=== PATIENT | male | born 1955 | race Caucasian/White ===

== ENCOUNTER 2018-08-23 21:28 | Observation (INO) ==
[2018-08-23] MEDS ORDERED: 0.9 % SODIUM CHLORIDE 1,000 ML IV ONE (22:05)
[2018-08-23] MEDS ORDERED: LORazepam 2 MG/ML VIAL IV ONE (22:40)
--- NOTE | 2018-08-23 22:41 | Emergency Department Note ---
Altered Mental Status HPI - General Chief Complaint: Altered Mental Status Stated Complaint: altered mental status Time Seen by Provider: 08/23/18 22:14 Mode of arrival: ambulatory - History of Present Illness HPI Narrative: 63-year-old male was brought by family because of memory and a gradual decline where he became quite confused today. His found him naked from the waist down and confused and not able to understand his current condition and could not convince him to put on closed and would not respond or obey his . He has not had any alcohol in the last 1-1/2 months. He has a history of hepatic cirrhosis. He had elevated liver function test, elevated no ammonia level, in June. He is also on 50 mcg of fentanyl patch as well as hydrocodone 10 mg a half in the morning and 1 at night having to do with chronic pain from previous shoulder surgery and other orthopedic. He is on lactulose and it does cause some mild diarrhea. He has no vomiting or nausea or abdominal pain. He denies chest pains or shortness of breath. No fevers chills or sweats. - Related Data Home Medications Medication Instructions Recorded Confirmed Cyclobenzaprine [Flexeril] 10 mg PO DAILYP PRN 04/05/18 07/06/18 Gabapentin [Neurontin] 600 mg PO DAILY 04/05/18 07/06/18 HYDROcodone/APAP 10/325MG [[place] 1 - 2 tab PO Q6H PRN 04/05/18 07/06/18 10-325Mg] LORazepam [Ativan] 1 mg PO BIDP PRN 04/05/18 07/06/18 Lisinopril [Zestril] 40 mg PO DAILY 04/05/18 07/06/18 Omeprazole [PriLOSEC] 20 mg PO ACB 04/05/18 07/06/18 amLODIPine [Norvasc] 5 mg PO DAILY 04/05/18 07/06/18 buPROPion HCL [Bupropion Xl] 150 mg PO DAILY 04/05/18 07/06/18 fentaNYL [Fentanyl] 50 mg TD Q48H 04/05/18 07/06/18 Previous Rx's Medication Instructions Recorded Lactulose [Cephulac] 20 gm PO DAILY #300 oral.marquita 07/07/18 Allergies Allergy/AdvReac Type Severity Reaction Status Date / Time No Known Drug Allergies Allergy Verified 04/05/18 02:14 Past Medical History - Past Medical History Medical history: Reports: hypertension, liver disease, other (cirrhosis. Hepatic encephalopathy.) Psychiatric history: Reports: anxiety Surgical history ED: Reports: other - Social History smoking status: Former smoker Alcohol use: Reports: Occasionally Drug use: Reports: opiates Physical Exam Limitations: altered mental status General appearance: obtunded, sleepy, other (Seems to respond appropriately but with slowed speech and poor eye contact.) Head: atraumatic, normocephalic Eye: Present: PERRL, EOMI, scleral icterus ENT: normal oropharynx, mucous membranes moist Neck: Present: trachea midline. Absent: lymphadenopathy, thyromegaly Chest: Present: symmetric chest wall rise Respiratory: Present: normal lung sounds bilaterally. Absent: respiratory distress, wheezes, stridor, accessory muscle use, prolonged expiratory phase Cardiovascular: Present: regular rate, normal rhythm. Absent: systolic murmur, diastolic murmur Abdominal: Present: soft. Absent: distention, tenderness, guarding, rebound, rigidity, organomegaly, mass Extremities: Present: pretibial edema (Trace bilateral. Daughter reports that this is chronic. Has not changed.). Absent: pedal edema, calf tenderness Patient oriented to: Present: person, place Speech: Present: fluid speech, slurred Cranial nerves: EOM function (II, III, IV, ): Normal Psychiatric: Present: flat affect, serious, poor eye contact, other (Slightly restless trying to get out of bed.). Absent: agitated, anxious Skin: Present: warm, dry. Absent: diaphoretic Course Vital Signs Temperature 98.4 F 08/23/18 21:29 Pulse Rate 96 H 08/23/18 21:29 Respiratory Rate 17 08/23/18 21:29 Blood Pressure 128/76 08/23/18 21:29 Pulse Oximetry (%) 96 08/23/18 21:29 Temperature 98.4 F 08/23/18 21:29 Pulse Rate 86 08/23/18 22:25 Respiratory Rate 10 L 08/23/18 22:25 Blood Pressure 128/76 08/23/18 21:29 Pulse Oximetry (%) 97 08/23/18 22:25 Altered Mental Status - [facility] Narrative Medical decision making narrative: 10:25 PM - increasing altered level of consciousness and mental status changes with unawareness, uncooperativeness, inappropriateness (negative and unaware and not responding appropriately) on a background history of elevated liver function test, ammonia elevations and presumed hepatic encephalopathy, with failing lactulose therapy. We will do basic labs and imaging of the head to make sure that he has not had a intracerebral bleed or other reversible considerations. - Lab Data Result diagrams: 08/23/18 21:55 08/23/18 21:55 Lab Results 08/23/18 08/23/18 08/23/18 Range/Units 21:55 21:55 21:55 WBC 4.8 (4.5-11.0) K/mcL RBC 3.64 L (4.50-5.90) M/mcL Hgb 12.9 L (13.5-16.5) g/dL Hct 38.2 L (41.0-55.0) % MCV 105.0 H (80.0-100.0) fL MCH 35.4 H (26.0-34.0) pg MCHC 33.7 (31.0-36.0) g/dL RDW 14.3 (11.5-14.5) % Plt Count 74 L (140-440) K/mcL MPV 8.5 (7.4-10.4) fL Gran % 74.5 (38.0-78.0) % Lymph % (Auto) 15.9 (15.5-49.0) % [place] % (Auto) 8.4 (1.0-12.0) % Eos % (Auto) 0.7 (0.0-7.0) % Baso % (Auto) 0.5 (0.0-2.0) % Gran # 3.6 (1.8-8.0) K/mcL Lymph # (Auto) 0.8 L (1.5-4.8) K/mcL [place] # (Auto) 0.4 (0.1-0.9) K/mcL Eos # (Auto) 0 (0.0-0.7) K/mcL Baso # (Auto) 0 (0.0-0.3) K/mcL PT 21.4 H (11.9-14.5) sec INR 1.9 H (0.9-1.1) VBG Lactic Acid (0.5-2.0) mmol/L Sodium 135 (133-145) mmol/L Potassium 4.0 (3.3-5.1) mmol/L Chloride 102 (96-108) mmol/L Carbon Dioxide 22 (22-30) mmol/L Anion Gap 11.0 (8-16) BUN 13 (8-23) mg/dl Creatinine 0.7 (0.7-1.2) mg/dl GFR Calculation 100 Glucose 147 H (70-105) mg/dL Calcium 8.9 (8.6-10.4) mg/dl Total Bilirubin 7.1 H (0.0-1.0) mg/dL AST 48 H (0-37) U/l ALT 35 (0-40) U/l Alkaline Phosphatase 130 H (39-117) U/L Ammonia (16-60) umol/L Troponin T (0-0.03) ng/ml NT-Pro-B Natriuret Pep (0-125) pg/ml Total Protein 5.5 L (5.9-8.4) gm/dL Albumin 3.3 (3.2-5.2) gm/dL Globulin 2.2 (2.2-3.7) gm/dL Albumin/Globulin Ratio 1.5 (1.0-2.3) 08/23/18 08/23/18 08/23/18 Range/Units 21:55 21:55 21:55 WBC (4.5-11.0) K/mcL RBC (4.50-5.90) M/mcL Hgb (13.5-16.5) g/dL Hct (41.0-55.0) % MCV (80.0-100.0) fL MCH (26.0-34.0) pg MCHC (31.0-36.0) g/dL RDW (11.5-14.5) % Plt Count (140-440) K/mcL MPV (7.4-10.4) fL Gran % (38.0-78.0) % Lymph % (Auto) (15.5-49.0) % [place] % (Auto) (1.0-12.0) % Eos % (Auto) (0.0-7.0) % Baso % (Auto) (0.0-2.0) % Gran # (1.8-8.0) K/mcL Lymph # (Auto) (1.5-4.8) K/mcL [place] # (Auto) (0.1-0.9) K/mcL Eos # (Auto) (0.0-0.7) K/mcL Baso # (Auto) (0.0-0.3) K/mcL PT (11.9-14.5) sec INR (0.9-1.1) VBG Lactic Acid 2.7 H (0.5-2.0) mmol/L Sodium (133-145) mmol/L Potassium (3.3-5.1) mmol/L Chloride (96-108) mmol/L Carbon Dioxide (22-30) mmol/L Anion Gap (8-16) BUN (8-23) mg/dl Creatinine (0.7-1.2) mg/dl GFR Calculation Glucose (70-105) mg/dL Calcium (8.6-10.4) mg/dl Total Bilirubin (0.0-1.0) mg/dL AST (0-37) U/l ALT (0-40) U/l Alkaline Phosphatase (39-117) U/L Ammonia 127 H (16-60) umol/L Troponin T < 0.01 (0-0.03) ng/ml NT-Pro-B Natriuret Pep (0-125) pg/ml Total Protein (5.9-8.4) gm/dL Albumin (3.2-5.2) gm/dL Globulin (2.2-3.7) gm/dL Albumin/Globulin Ratio (1.0-2.3) 08/23/18 Range/Units 21:55 WBC (4.5-11.0) K/mcL RBC (4.50-5.90) M/mcL Hgb (13.5-16.5) g/dL Hct (41.0-55.0) % MCV (80.0-100.0) fL MCH (26.0-34.0) pg MCHC (31.0-36.0) g/dL RDW (11.5-14.5) % Plt Count (140-440) K/mcL MPV (7.4-10.4) fL Gran % (38.0-78.0) % Lymph % (Auto) (15.5-49.0) % [place] % (Auto) (1.0-12.0) % Eos % (Auto) (0.0-7.0) % Baso % (Auto) (0.0-2.0) % Gran # (1.8-8.0) K/mcL Lymph # (Auto) (1.5-4.8) K/mcL [place] # (Auto) (0.1-0.9) K/mcL Eos # (Auto) (0.0-0.7) K/mcL Baso # (Auto) (0.0-0.3) K/mcL PT (11.9-14.5) sec INR (0.9-1.1) VBG Lactic Acid (0.5-2.0) mmol/L Sodium (133-145) mmol/L Potassium (3.3-5.1) mmol/L Chloride (96-108) mmol/L Carbon Dioxide (22-30) mmol/L Anion Gap (8-16) BUN (8-23) mg/dl Creatinine (0.7-1.2) mg/dl GFR Calculation Glucose (70-105) mg/dL Calcium (8.6-10.4) mg/dl Total Bilirubin (0.0-1.0) mg/dL AST (0-37) U/l ALT (0-40) U/l Alkaline Phosphatase (39-117) U/L Ammonia (16-60) umol/L Troponin T (0-0.03) ng/ml NT-Pro-B Natriuret Pep 165.6 H (0-125) pg/ml Total Protein (5.9-8.4) gm/dL Albumin (3.2-5.2) gm/dL Globulin (2.2-3.7) gm/dL Albumin/Globulin Ratio (1.0-2.3) Disposition Pt seen by SHOE LACER/PA only: No Clinical Impression: Hepatic encephalopathy Altered mental status Qualifiers: Altered mental status type: unspecified Qualified Code(s): R41.82 - Altered mental status, unspecified Summary: Dr. Arslan Haque is assuming care due to change to evening shift. Patient's case briefly discussed/reviewed. Disposition: Still a Patient Condition: Undetermined Referrals: Cindy Hester MD [Primary Care Provider] -
[2018-08-23 22:48] LABS: Basophils # (Auto) 0 K/mcL (0.0-0.3); Basophils % (Auto) 0.5 % (0.0-2.0); Eosinophils # (Auto) 0 K/mcL (0.0-0.7); Eosinophils % (Auto) 0.7 % (0.0-7.0); Granulocytes % (Auto) 74.5 % (38.0-78.0); Hematocrit 38.2 % (41.0-55.0); Hemoglobin 12.9 g/dL (13.5-16.5); Lymphocytes # (Auto) 0.8 K/mcL (1.5-4.8); Lymphocytes % (Auto) 15.9 % (15.5-49.0); Mean Corpuscular HGB Conc 33.7 g/dL (31.0-36.0); Mean Platelet Volume 8.5 fL (7.4-10.4); Monocytes # (Auto) 0.4 K/mcL (0.1-0.9); Monocytes % (Auto) 8.4 % (1.0-12.0); Platelet Count 74 K/mcL (140-440); RBC 3.64 M/mcL (4.50-5.90); Red Cell Distribution Width 14.3 % (11.5-14.5); WBC 4.8 K/mcL (4.5-11.0)
[2018-08-23 23:01] LABS: ALT/SGPT 35 U/l (0-40); AST/SGOT 48 U/l (0-37); Albumin 3.3 gm/dL (3.2-5.2); Albumin/Globulin Ratio 1.5 (1.0-2.3); Alkaline Phosphatase 130 U/L (39-117); Bilirubin,Total 7.1 mg/dL (0.0-1.0); Blood Urea Nitrogen 13 mg/dl (8-23); Calcium 8.9 mg/dl (8.6-10.4); Carbon Dioxide 22 mmol/L (22-30); Chloride 102 mmol/L (96-108); Globulin 2.2 gm/dL (2.2-3.7); Glomerular Filtration Rate 100; Glucose 147 mg/dL (70-105); Sodium 135 mmol/L (133-145)
[2018-08-23 23:02] LABS: INR 1.9 (0.9-1.1); Prothrombin Time 21.4 sec (11.9-14.5)
--- NOTE | 2018-08-24 00:32 | Emergency Department Note ---
Altered Mental Status HPI - General Chief Complaint: Altered Mental Status Stated Complaint: altered mental status Time Seen by Provider: 08/23/18 22:14 Source: patient Mode of arrival: ambulatory Limitations: altered mental status - History of Present Illness HPI Narrative: Patient is checked out to me at shift change by Dr. Huggins. I reviewed his note as well as previous ER notes. Patient has a history of recent onset cirrhosis of liver . Comes in today for altered mental status x4 days per his . His lactulose scheduling was recently changed. He has not been on Xifaxan - Related Data Home Medications Medication Instructions Recorded Confirmed Cyclobenzaprine [Flexeril] 10 mg PO DAILYP PRN 04/05/18 07/06/18 Gabapentin [Neurontin] 600 mg PO DAILY 04/05/18 07/06/18 HYDROcodone/APAP 10/325MG [[place] 1 - 2 tab PO Q6H PRN 04/05/18 07/06/18 10-325Mg] LORazepam [Ativan] 1 mg PO BIDP PRN 04/05/18 07/06/18 Lisinopril [Zestril] 40 mg PO DAILY 04/05/18 07/06/18 Omeprazole [PriLOSEC] 20 mg PO ACB 04/05/18 07/06/18 amLODIPine [Norvasc] 5 mg PO DAILY 04/05/18 07/06/18 buPROPion HCL [Bupropion Xl] 150 mg PO DAILY 04/05/18 07/06/18 fentaNYL [Fentanyl] 50 mg TD Q48H 04/05/18 07/06/18 Previous Rx's Medication Instructions Recorded Lactulose [Cephulac] 20 gm PO DAILY #300 oral.marquita 07/07/18 Allergies Allergy/AdvReac Type Severity Reaction Status Date / Time No Known Drug Allergies Allergy Verified 04/05/18 02:14 Past Medical History - Past Medical History Medical history: Reports: hypertension, liver disease, other (cirrhosis. Hepatic encephalopathy.) Psychiatric history: Reports: anxiety Surgical history ED: Reports: other - Social History smoking status: Former smoker Alcohol use: Reports: Occasionally Drug use: Reports: opiates Physical Exam Limitations: altered mental status General appearance: obtunded, sleepy, other (Seems to respond appropriately but with slowed speech and poor eye contact.) Course Vital Signs Temperature 98.4 F 08/23/18 21:29 Pulse Rate 96 H 08/23/18 21:29 Respiratory Rate 17 08/23/18 21:29 Blood Pressure 128/76 08/23/18 21:29 Pulse Oximetry (%) 96 08/23/18 21:29 Temperature 98.4 F 08/23/18 21:29 Pulse Rate 83 08/24/18 02:32 Respiratory Rate 11 L 08/24/18 01:47 Blood Pressure 137/65 08/24/18 02:32 Pulse Oximetry (%) 96 08/24/18 02:32 Altered Mental Status - Lab Data Lab results reviewed: Yes I reviewed the patient's lab results. Result diagrams: 08/23/18 21:55 08/23/18 21:55 Lab Results 08/23/18 08/23/18 08/23/18 Range/Units 21:55 21:55 21:55 WBC 4.8 (4.5-11.0) K/mcL RBC 3.64 L (4.50-5.90) M/mcL Hgb 12.9 L (13.5-16.5) g/dL Hct 38.2 L (41.0-55.0) % MCV 105.0 H (80.0-100.0) fL MCH 35.4 H (26.0-34.0) pg MCHC 33.7 (31.0-36.0) g/dL RDW 14.3 (11.5-14.5) % Plt Count 74 L (140-440) K/mcL MPV 8.5 (7.4-10.4) fL Gran % 74.5 (38.0-78.0) % Lymph % (Auto) 15.9 (15.5-49.0) % [place] % (Auto) 8.4 (1.0-12.0) % Eos % (Auto) 0.7 (0.0-7.0) % Baso % (Auto) 0.5 (0.0-2.0) % Gran # 3.6 (1.8-8.0) K/mcL Lymph # (Auto) 0.8 L (1.5-4.8) K/mcL [place] # (Auto) 0.4 (0.1-0.9) K/mcL Eos # (Auto) 0 (0.0-0.7) K/mcL Baso # (Auto) 0 (0.0-0.3) K/mcL PT 21.4 H (11.9-14.5) sec INR 1.9 H (0.9-1.1) VBG Lactic Acid (0.5-2.0) mmol/L Sodium 135 (133-145) mmol/L Potassium 4.0 (3.3-5.1) mmol/L Chloride 102 (96-108) mmol/L Carbon Dioxide 22 (22-30) mmol/L Anion Gap 11.0 (8-16) BUN 13 (8-23) mg/dl Creatinine 0.7 (0.7-1.2) mg/dl GFR Calculation 100 Glucose 147 H (70-105) mg/dL Calcium 8.9 (8.6-10.4) mg/dl Total Bilirubin 7.1 H (0.0-1.0) mg/dL AST 48 H (0-37) U/l ALT 35 (0-40) U/l Alkaline Phosphatase 130 H (39-117) U/L Ammonia (16-60) umol/L Troponin T (0-0.03) ng/ml NT-Pro-B Natriuret Pep (0-125) pg/ml Total Protein 5.5 L (5.9-8.4) gm/dL Albumin 3.3 (3.2-5.2) gm/dL Globulin 2.2 (2.2-3.7) gm/dL Albumin/Globulin Ratio 1.5 (1.0-2.3) Urine Color Urine Appearance Urine pH (5.0-9.0) Ur Specific [place] (1.000-1.035) Urine Protein (NEG) mg/dL Urine Glucose (UA) (NEG) mg/dL Urine Ketones (NEG) mg/dL Urine Occult Blood (<0.03) mg/dL Urine Nitrate (NEG) Urine Bilirubin (NEG) mg/dL Urine Urobilinogen (NEG) mg/dL Ur Leukocyte Esterase (NEG) /uL Urine RBC (0-1) /hpf Urine WBC (0-4) /hpf Ur Squamous Epith Cells (0-4) /hpf Urine Bacteria (0) /hpf Hyaline Casts (0-2) /lpf Urine Mucus (0) /hpf Ur Culture Indicated? 08/23/18 08/23/18 08/23/18 Range/Units 21:55 21:55 21:55 WBC (4.5-11.0) K/mcL RBC (4.50-5.90) M/mcL Hgb (13.5-16.5) g/dL Hct (41.0-55.0) % MCV (80.0-100.0) fL MCH (26.0-34.0) pg MCHC (31.0-36.0) g/dL RDW (11.5-14.5) % Plt Count (140-440) K/mcL MPV (7.4-10.4) fL Gran % (38.0-78.0) % Lymph % (Auto) (15.5-49.0) % [place] % (Auto) (1.0-12.0) % Eos % (Auto) (0.0-7.0) % Baso % (Auto) (0.0-2.0) % Gran # (1.8-8.0) K/mcL Lymph # (Auto) (1.5-4.8) K/mcL [place] # (Auto) (0.1-0.9) K/mcL Eos # (Auto) (0.0-0.7) K/mcL Baso # (Auto) (0.0-0.3) K/mcL PT (11.9-14.5) sec INR (0.9-1.1) VBG Lactic Acid 2.7 H (0.5-2.0) mmol/L Sodium (133-145) mmol/L Potassium (3.3-5.1) mmol/L Chloride (96-108) mmol/L Carbon Dioxide (22-30) mmol/L Anion Gap (8-16) BUN (8-23) mg/dl Creatinine (0.7-1.2) mg/dl GFR Calculation Glucose (70-105) mg/dL Calcium (8.6-10.4) mg/dl Total Bilirubin (0.0-1.0) mg/dL AST (0-37) U/l ALT (0-40) U/l Alkaline Phosphatase (39-117) U/L Ammonia 127 H (16-60) umol/L Troponin T < 0.01 (0-0.03) ng/ml NT-Pro-B Natriuret Pep (0-125) pg/ml Total Protein (5.9-8.4) gm/dL Albumin (3.2-5.2) gm/dL Globulin (2.2-3.7) gm/dL Albumin/Globulin Ratio (1.0-2.3) Urine Color Urine Appearance Urine pH (5.0-9.0) Ur Specific [place] (1.000-1.035) Urine Protein (NEG) mg/dL Urine Glucose (UA) (NEG) mg/dL Urine Ketones (NEG) mg/dL Urine Occult Blood (<0.03) mg/dL Urine Nitrate (NEG) Urine Bilirubin (NEG) mg/dL Urine Urobilinogen (NEG) mg/dL Ur Leukocyte Esterase (NEG) /uL Urine RBC (0-1) /hpf Urine WBC (0-4) /hpf Ur Squamous Epith Cells (0-4) /hpf Urine Bacteria (0) /hpf Hyaline Casts (0-2) /lpf Urine Mucus (0) /hpf Ur Culture Indicated? 08/23/18 08/24/18 Range/Units 21:55 00:45 WBC (4.5-11.0) K/mcL RBC (4.50-5.90) M/mcL Hgb (13.5-16.5) g/dL Hct (41.0-55.0) % MCV (80.0-100.0) fL MCH (26.0-34.0) pg MCHC (31.0-36.0) g/dL RDW (11.5-14.5) % Plt Count (140-440) K/mcL MPV (7.4-10.4) fL Gran % (38.0-78.0) % Lymph % (Auto) (15.5-49.0) % [place] % (Auto) (1.0-12.0) % Eos % (Auto) (0.0-7.0) % Baso % (Auto) (0.0-2.0) % Gran # (1.8-8.0) K/mcL Lymph # (Auto) (1.5-4.8) K/mcL [place] # (Auto) (0.1-0.9) K/mcL Eos # (Auto) (0.0-0.7) K/mcL Baso # (Auto) (0.0-0.3) K/mcL PT (11.9-14.5) sec INR (0.9-1.1) VBG Lactic Acid (0.5-2.0) mmol/L Sodium (133-145) mmol/L Potassium (3.3-5.1) mmol/L Chloride (96-108) mmol/L Carbon Dioxide (22-30) mmol/L Anion Gap (8-16) BUN (8-23) mg/dl Creatinine (0.7-1.2) mg/dl GFR Calculation Glucose (70-105) mg/dL Calcium (8.6-10.4) mg/dl Total Bilirubin (0.0-1.0) mg/dL AST (0-37) U/l ALT (0-40) U/l Alkaline Phosphatase (39-117) U/L Ammonia (16-60) umol/L Troponin T (0-0.03) ng/ml NT-Pro-B Natriuret Pep 165.6 H (0-125) pg/ml Total Protein (5.9-8.4) gm/dL Albumin (3.2-5.2) gm/dL Globulin (2.2-3.7) gm/dL Albumin/Globulin Ratio (1.0-2.3) Urine Color Yellow Urine Appearance Clear Urine pH 5.0 (5.0-9.0) Ur Specific [place] 1.021 (1.000-1.035) Urine Protein Neg (NEG) mg/dL Urine Glucose (UA) Negative (NEG) mg/dL Urine Ketones Neg (NEG) mg/dL Urine Occult Blood Neg (<0.03) mg/dL Urine Nitrate Neg (NEG) Urine Bilirubin Neg (NEG) mg/dL Urine Urobilinogen 4.0 A (NEG) mg/dL Ur Leukocyte Esterase Neg (NEG) /uL Urine RBC 0 (0-1) /hpf Urine WBC 2 (0-4) /hpf Ur Squamous Epith Cells 0 (0-4) /hpf Urine Bacteria 0 (0) /hpf Hyaline Casts 19 H (0-2) /lpf Urine Mucus Many A (0) /hpf Ur Culture Indicated? No - Radiology Data Radiology results reviewed: Yes I reviewed the patient's radiology results. CT scan of the head is shows no acute change Disposition Pt seen by ELASTIC TAPE INSERTER/PA only: No Clinical Impression: Hepatic encephalopathy Altered mental status Qualifiers: Altered mental status type: unspecified Qualified Code(s): R41.82 - Altered mental status, unspecified Summary: After assumed care of this patient I reviewed his laboratory. Notably he has hepatic encephalopathy. CT scan of the head did not reveal any new findings or causes for his altered mental status. Discussed findings with the hospitalist, Dr. Jerry who agreed to accept patient for further care and evaluation in the hospital. I wrote holding orders for the patient overnight. Start lactulose here in the ER and then every 4 hours. Disposition: Xfer As Inpt ([facility]) Condition: Serious
[2018-08-24] MEDS ORDERED: LACTULOSE 20 GM/30 ML ORAL.SOL PO ONE (00:45)
[2018-08-24 01:34] LABS: Appearance,Urine CLEAR; Bacteria,Urine 0 /hpf (0); Bilirubin,Urine NEG (NEG); Color,Urine YELLOW; Culture Indicated,Urine NO; Glucose,Urine (UA) NEGATIVE (NEG); Ketones,Urine NEG (NEG); Leukocyte Esterase,Urine NEG /uL (NEG); Mucus,Urine MANY /hpf (0); Nitrate,Urine NEG (NEG); Protein,Urine NEG (NEG); Specific Gravity,Urine 1.021 (1.000-1.035); Urine Blood NEG mg/dL (<0.03); Urine Hyaline Cast 19 /lpf (0-2); Urine RBC 0 /hpf (0-1); Urine Squamous Epithelial Cell 0 /hpf (0-4); Urine WBC 2 /hpf (0-4)
[2018-08-24] MEDS ORDERED: ONDANSETRON 4 MG/2 ML VIAL IV PRN (01:47)
[2018-08-24] MEDS ORDERED: NALOXONE HCL 0.4 MG/ML VIAL IV PRN (01:47)
[2018-08-24] MEDS ORDERED: HYDROcodone/APAP 5/325MG TABLET PO PRN (01:47)
[2018-08-24] MEDS: LACTULOSE 20 GM/30 ML ORAL.SOL PO SCH ×5 (03:24→20:55)
--- NOTE | 2018-08-24 09:00 | XRay Report ---
HISTORY: Breathlessness and altered mental status FINDINGS: There is a small infiltrate at the left lung base with a superimposed small pleural effusion. These are new finding since 07/06/18. The remainder of the lung astudillo are clear. Heart size is within upper limits of normal and there is no congestive heart failure. Arthritis is present in the thoracic spine and both shoulders. IMPRESSION: Small left lower lobe infiltrate with associated small pleural effusion. Infiltrate could be atelectasis or pneumonia. Interpreted and Authenticated by: Armando Roberts 08/24/18
--- NOTE | 2018-08-24 09:08 | Cat Scan Report ---
History: Increasing confusion TECHNIQUE: The brain was imaged without contrast at 2.5 mm intervals. The radiation exposure was limited using dose reduction technology. FINDINGS: There is mild atrophy, most apparent in the frontal and temporal lobes. There is no evidence of a mass, hemorrhage, infarct or inflammatory change. The ventricles and cisterns are normal. Comparison with the prior exam from 07/06/18 shows no significant change. No abnormal extra-axial fluid collection is present. Patient has minor left ethmoid sinusitis. IMPRESSION: Mild atrophy and no acute abnormality Interpreted and Authenticated by: Armando Roberts 08/24/18
--- NOTE | 2018-08-24 10:38 | Internal Med History&Physical ---
Medical - H&P: [facility] Patient information: Note initiated : 08/24/18 at 10:38 am Service Date, if different from initiated Date: [] Patient: Thien Pacheco 63 y/o M admitted on 08/24/18 for altered mental status. Chief Complaint: [] Chief complaint: confused History of present illness: Mr. Pacheco is a 63 year old M with a history of alcoholic cirrhosis and hepatic encephalopathy. He was diagnosed with alcoholic cirrhosis after recent ER visit last month and was discharged on lactulose with follow-up advice with GI and primary care physician. Workup including paracentesis/liver failure was ordered. Patient has been doing well since then and has been abstinent of alcohol however over the last 48 hours he has been progressively somnolent and fatigued and has been laying on the bed all day. His Arlin found him lying naked from the waist below, and has not been able to hold a conversation or comprehend or think right. His however denies noticing nausea, bloody emesis or bloody stool. Patient further denies abdominal pain fever or shaking chills or or jaundice. He denies changes in medications. Initial workup was consistent with left lower lobe pneumonia over 140, elevated bilirubin at 7. Patient has been taking 3 times a day lactulose. He is also on multiple medications including hydrocodone and fentanyl. In the ER patient received Romazicon without any improvement. Subsequently hospitalist service was consulted At the time of evaluation patient is accompanied with his . He is able to answer simple questions. He is very slow to respond. Most of the history is obtained from review of medical records, ER physician and patient's . Review of systems 10 point review of system was performed and is negative except as discussed above Medical - H&P: PMH Medical history: Alcoholic cirrhosis history of alcoholism Hepatic encephalopathy Anxiety disorder Chronic pain Hypertension GERD Neuropathy Pertinent family history: Nonsignificant Social history: to Arlin Lives in [place] Follows up with Cindy Hester Medical - H&P: Meds Home Medications Medication Instructions Recorded Confirmed Type Cyclobenzaprine [Flexeril] 10 mg PO TIDP PRN 04/05/18 08/24/18 History Gabapentin [Neurontin] 300 mg PO TID 04/05/18 08/24/18 History HYDROcodone/APAP 10/325MG [[place] 1 tab PO HS 04/05/18 08/24/18 History 10-325Mg] LORazepam [Ativan] 1 mg PO BIDP PRN 04/05/18 08/24/18 History Lisinopril [Zestril] 40 mg PO DAILY 04/05/18 08/24/18 History Omeprazole [PriLOSEC] 20 mg PO ACB 04/05/18 08/24/18 History amLODIPine [Norvasc] 5 mg PO DAILY 04/05/18 08/24/18 History buPROPion HCL [Bupropion Xl] 150 mg PO DAILY 04/05/18 08/24/18 History fentaNYL [Fentanyl] 50 mg TD Q48H 04/05/18 08/24/18 History HYDROcodone/APAP 10/325MG [[place] 0.5 tab PO DAILY 08/24/18 08/24/18 History 10-325Mg] Lactulose [Cephulac] 30 gm PO BID 08/24/18 08/24/18 History Allergies Allergy/AdvReac Type Severity Reaction Status Date / Time No Known Drug Allergies Allergy Verified 04/05/18 02:14 Medical - H&P: Exam - Constitutional Vitals: Temp Pulse Resp BP Pulse Ox 98.5 F 79 16 110/65 95 08/24/18 06:45 08/24/18 06:45 08/24/18 06:45 08/24/18 06:45 08/24/18 06:45 General appearance: average body habitus Exam: Lethargic and slow to respond Oral cavity dry Head normocephalic No ear or nose discharge scleral icterus noted S1 and S2 irregular rhythm grade 1 murmur systolic Diminished breath sounds bases bilaterally Abdomen soft nontender but distended, no guarding rebound or fluid Lower extremity no cyanosis clubbing no joint swelling Skin jaundiced Psych somnolent and slow to respond but cooperative Neuro nonfocal, asterixis plus Medical - H&P: Reslt - Labs CBC & Chem 7: 08/23/18 21:55 08/23/18 21:55 Labs: Short CBC 08/23/18 Range/Units 21:55 WBC 4.8 (4.5-11.0) K/mcL Hgb 12.9 L (13.5-16.5) g/dL Hct 38.2 L (41.0-55.0) % Plt Count 74 L (140-440) K/mcL BMP 08/23/18 21:55 Sodium 135 Potassium 4.0 Chloride 102 Carbon Dioxide 22 BUN 13 Creatinine 0.7 Glucose 147 H Calcium 8.9 Cardiac Enzymes 08/23/18 Range/Units 21:55 Troponin T < 0.01 (0-0.03) ng/ml Liver Function 08/23/18 Range/Units 21:55 Total Bilirubin 7.1 H (0.0-1.0) mg/dL AST 48 H (0-37) U/l ALT 35 (0-40) U/l Alkaline Phosphatase 130 H (39-117) U/L Albumin 3.3 (3.2-5.2) gm/dL Urine 08/24/18 Range/Units 00:45 Urine Color Yellow Urine Appearance Clear Urine pH 5.0 (5.0-9.0) Ur Specific [place] 1.021 (1.000-1.035) Urine Protein Neg (NEG) mg/dL Urine Glucose (UA) Negative (NEG) mg/dL Medical - H&P: A/P (1) Hepatic encephalopathy Current visit: Yes Status: Acute * Hepatic encephalopathy-continue lactulose start rifaximin. * Left lower lobe pneumonia likely community acquired-continue Levaquin. * End-stage liver disease secondary to alcoholic cirrhosis- MELD Na 23-90% mortality rate. Bilirubin 7 with elevated LFTs, INR 1.9. Patient has not followed up with GI except for endoscopy evaluation with Dr. More. Recommend outpatient follow-up with GI for better management of liver cirrhosis. Patient has been abstinent of alcohol over the last 6 weeks * History of hypertension continue amlodipine * Anxiety disorder continue bupropion * Neuropathy continue gabapentin * Pain management hold narcotics * GERD continue PPI * Full code * Prophylaxis heparin Plan * Start rifaximin/continue lactulose * Pre-existing medical condition management as above * Recommend close outpatient follow-up with GI * Observation admit Medical - H&P: Qual - VTE Deep Vein Thrombosis/Pulmonary Embolism Present on Admission: No
[2018-08-24] MEDS: RIFAXIMIN 550 MG TABLET PO SCH ×2 (11:04→20:55)
[2018-08-24] MEDS ORDERED: fentaNYL 50 MCG PATCH ONE (23:26)
[2018-08-24] MEDS: fentaNYL 50 MCG PATCH TOPICAL SCH (23:28)
[2018-08-25] MEDS ORDERED: traZODone HCL 50 MG TABLET PO ONE (00:45)
[2018-08-25] MEDS ORDERED: GABAPENTIN 300 MG CAPSULE ONE (01:02)
[2018-08-25] MEDS ORDERED: traZODone HCL 50 MG TABLET ONE ×2 (01:02→22:45)
[2018-08-25] MEDS: GABAPENTIN 300 MG CAPSULE PO SCH ×4 (01:03→21:15)
[2018-08-25] MEDS: LACTULOSE 20 GM/30 ML ORAL.SOL PO SCH ×3 (08:26→21:15)
[2018-08-25] MEDS: RIFAXIMIN 550 MG TABLET PO SCH ×2 (08:26→21:15)
[2018-08-25] MEDS: buPROPion 150 MG TAB.XL.24H PO SCH (08:26)
[2018-08-25] MEDS: LEVOFLOXACIN 500 MG TABLET PO SCH (11:21)
--- NOTE | 2018-08-25 12:01 | Internal Med Progress Note ---
Medical - PN: Subj Patient information: Note initiated : 08/25/18 at 11:58 am Service Date, if different from initiated Date: [] Patient: Thien Pacheco 63 y/o M admitted on 08/24/18 for altered mental status. Chief Complaint: [] Interval history: Mr. Pacheco is a 63 year old M with a history of alcoholic cirrhosis and hepatic encephalopathy. He was diagnosed with alcoholic cirrhosis after recent ER visit last month and was discharged on lactulose with follow-up advice with GI and primary care physician. Workup including paracentesis/liver failure was ordered. Patient has been doing well since then and has been abstinent of alcohol however over the last 48 hours he has been progressively somnolent and f atigued and has been laying on the bed all day. His Arlin found him lying naked from the waist below, and has not been able to hold a conversation or comprehend or think right. His however denies noticing nausea, bloody emesis or bloody stool. Patient further denies abdominal pain fever or shaking chills or or jaundice. He denies changes in medications. Initial workup was consistent with left lower lobe pneumonia over 140, elevated bilirubin at 7. Patient has been taking 3 times a day lactulose. He is also on multiple medications including hydrocodone and fentanyl. In the ER patient received Romazicon without any improvement. Subsequently hospitalist service was consulted At the time of evaluation patient is accompanied with his . He is able to answer simple questions. He is very slow to respond. Most of the history is obtained from review of medical records, ER physician and patient's . 08/25-patient seen in room along with at bedside. Feeling better since previous day with improved mentation. Currently on antibiotic coverage for pneumonia/rifaximin and lactulose. Multiple bowel movements. No overnight fever or chills. More lucid. Was complaining of back pain/anxiolytic last night. - Constitutional Vitals: Vital Signs Temp Pulse Resp BP Pulse Ox 98.4 F 71 18 111/60 95 08/25/18 07:44 08/25/18 07:44 08/25/18 07:44 08/25/18 07:44 08/25/18 07:44 Period Temp Pulse Resp BP Sys/[place] Pulse Ox Last 24 Hr 98.4 F-99.2 F 71-85 16-18 111-144/58-79 95-98 Intake and Output 08/24/18 08/25/18 08/25/18 21:59 05:59 13:59 Intake Total 1040 300 Balance 1040 300 Weight 210 lb 8 oz Intake & Output: Intake & Output 08/24/18 08/25/18 08/25/18 21:59 05:59 13:59 Intake Total 1040 300 Balance 1040 300 Weight 210 lb 8 oz Intake: Oral 1040 300 Other: Meal Dinner Percent of Meal Consumed 75% Urine Appearance Clear Urine Color Dark Yellow Stool Size Small Stool Color Brown Stool Consistency Loose Loose # Voids 1 # Bowel Movements 1 General appearance: no acute distress Exam: Alert oriented No anxiety Persistent jaundice and scleral icterus Nonlabored breathing Minimally distended abdomen Medical - PN: Obj Da - Labs CBC & Chem 7: 08/23/18 21:55 08/23/18 21:55 Labs: Abnormal Lab Results 08/24/18 08/23/18 08/23/18 00:45 21:55 21:55 RBC Hgb Hct MCV MCH Plt Count Lymph # (Auto) PT INR VBG Lactic Acid Glucose Total Bilirubin AST Alkaline Phosphatase Ammonia 127 H NT-Pro-B Natriuret Pep 165.6 H Total Protein Urine Urobilinogen 4.0 A Hyaline Casts 19 H Urine Mucus Many A 08/23/18 08/23/18 08/23/18 21:55 21:55 21:55 RBC Hgb Hct MCV MCH Plt Count Lymph # (Auto) PT 21.4 H INR 1.9 H VBG Lactic Acid 2.7 H Glucose 147 H Total Bilirubin 7.1 H AST 48 H Alkaline Phosphatase 130 H Ammonia NT-Pro-B Natriuret Pep Total Protein 5.5 L Urine Urobilinogen Hyaline Casts Urine Mucus 08/23/18 21:55 RBC 3.64 L Hgb 12.9 L Hct 38.2 L MCV 105.0 H MCH 35.4 H Plt Count 74 L Lymph # (Auto) 0.8 L PT INR VBG Lactic Acid Glucose Total Bilirubin AST Alkaline Phosphatase Ammonia NT-Pro-B Natriuret Pep Total Protein Urine Urobilinogen Hyaline Casts Urine Mucus Meds: Medications Hydrocodone Bitart/Acetaminophen ([place] 5/325mg) 1 tab PO Q4HP PRN PRN Reason: PAIN LEVEL 3-6 Last Admin: 08/24/18 22:22 Dose: 1 tab Documented by: Bupropion HCl (Wellbutrin Xl) 150 mg PO DAILY [facility] Last Admin: 08/25/18 08:26 Dose: 150 mg Documented by: Fentanyl (Duragesic) 50 mcg TOPICAL Q48H [facility] Last Admin: 08/24/18 23:28 Dose: Not Given Documented by: Gabapentin (Neurontin) 300 mg PO TID [facility] Last Admin: 08/25/18 08:26 Dose: 300 mg Documented by: Lactulose (Cephulac) 30 gm PO TID [facility] Last Admin: 08/25/18 08:26 Dose: 30 gm Documented by: Levofloxacin (Levaquin) 500 mg PO DAILY [facility]; Protocol Last Admin: 08/25/18 11:21 Dose: 500 mg Documented by: Naloxone HCl (Narcan) 0.1 mg IV Q2MIN PRN PRN Reason: Opiate Reversal Ondansetron HCl (Zofran) 4 mg IV Q4HP PRN PRN Reason: Nausea And Vomiting Medical - PN: A/P - Time Spent With Patient Total time spent is greater than 50% in coordination of care (as documented) at patient's floor/unit and/or counseling patient: 25 - 35 minutes (1) Hepatic encephalopathy Status: Acute Assessment and plan: * Hepatic responding clinically improving on lactulose and rifaximin. * Left lower lobe pneumonia likely community acquired-continue Levaquin for 7 days. * End-stage liver disease secondary to alcoholic cirrhosis- MELD Na 23-90% mortality rate. Bilirubin 7 with elevated LFTs, INR 1.9. Patient has not followed up with GI except for endoscopy evaluation with Dr. More. Recommend outpatient follow-up with GI for better management of liver cirrhosis. Patient has been abstinent of alcohol over the last 6 weeks * History of hypertension continue amlodipine * Anxiety disorder continue bupropion * Neuropathy continue gabapentin * Pain management -start home dose fentanyl * GERD continue PPI * Full code * Prophylaxis heparin Plan * Continue rifaximin/continue lactulose * Antibiotic coverage * Pre-existing medical condition management as above * Recommend close outpatient follow-up with GI * Possible discharge in 24 hours Current Visit: Yes Medical - PN: Qual - VTE Deep Vein Thrombosis/Pulmonary Embolism Present on Admission: No
[2018-08-25 12:57] LABS: ALT/SGPT 36 U/l (0-40); AST/SGOT 56 U/l (0-37); Albumin 3.1 gm/dL (3.2-5.2); Albumin/Globulin Ratio 1.5 (1.0-2.3); Alkaline Phosphatase 129 U/L (39-117); Bilirubin,Direct 1.8 mg/dL (0.0-0.3); Bilirubin,Total 5.4 mg/dL (0.0-1.0); Blood Urea Nitrogen 10 mg/dl (8-23); Calcium 8.5 mg/dl (8.6-10.4); Carbon Dioxide 26 mmol/L (22-30); Chloride 107 mmol/L (96-108); Gamma Glutamyl Transpeptidase 67 U/L (8-61); Globulin 2.1 gm/dL (2.2-3.7); Glomerular Filtration Rate 91; Glucose 127 mg/dL (70-105); Lactate Dehydrogenase 172 U/L (94-250); Magnesium 1.9 mg/dL (1.6-2.5); Phosphorous 2.4 mg/dL (2.7-4.5); Potassium 3.1 mmol/L (3.3-5.1); Sodium 142 mmol/L (133-145); Triglycerides 145 mg/dl (<150); Uric Acid 3.2 mg/dL (2.5-8.0)
[2018-08-25 13:04] LABS: Hematocrit 34.3 % (41.0-55.0); Hemoglobin 11.7 g/dL (13.5-16.5); Lymphocytes % 23 % (15-49); Macrocytosis 2+ (NONE SEEN); Mean Corpuscular HGB Conc 34.1 g/dL (31.0-36.0); Mean Platelet Volume 8.1 fL (7.4-10.4); Monocytes % (Manual) 3 % (1-12); Platelet Count 64 K/mcL (140-440); Platelet Estimate DECREASED (NORMAL); RBC 3.21 M/mcL (4.50-5.90); RBC Morphology ABNORM (NORMAL); Red Cell Distribution Width 15.4 % (11.5-14.5); Segmented Neutrophils % 74 % (38-78); WBC 3.2 K/mcL (4.5-11.0)
[2018-08-25 13:43] LABS: Appearance,Urine CLEAR; Bacteria,Urine 0 /hpf (0); Calcium Oxalate Crystals,Urine FEW /hpf (0); Color,Urine AMBER; Culture Indicated,Urine NO; Glucose,Urine (UA) NEGATIVE (NEG); Ketones,Urine NEG (NEG); Leukocyte Esterase,Urine NEG /uL (NEG); Mucus,Urine MANY /hpf (0); Nitrate,Urine NEG (NEG); Protein,Urine 30 mg/dL (NEG); Specific Gravity,Urine 1.029 (1.000-1.035); Urine Blood NEG mg/dL (<0.03); Urine Hyaline Cast 1 /lpf (0-2); Urine RBC 5 /hpf (0-1); Urine Squamous Epithelial Cell < 1 /hpf (0-4); Urine Transitional Epi Cells < 1 /hpf (0-2); Urine WBC 2 /hpf (0-4)
[2018-08-25 13:44] LABS: Ictotest,Urine POS (NEG)
[2018-08-25] MEDS ORDERED: traZODone HCL 50 MG TABLET PO PRN (22:30)
[2018-08-26 06:36] LABS: Hematocrit 34.4 % (41.0-55.0); Hemoglobin 11.7 g/dL (13.5-16.5); Mean Cell Volume 108.1 fL (80.0-100.0); Mean Platelet Volume 8.5 fL (7.4-10.4); Platelet Count 67 K/mcL (140-440); RBC 3.18 M/mcL (4.50-5.90); Red Cell Distribution Width 15.4 % (11.5-14.5); WBC 3.2 K/mcL (4.5-11.0)
[2018-08-26 06:49] LABS: ALT/SGPT 37 U/l (0-40); AST/SGOT 54 U/l (0-37); Albumin 3.1 gm/dL (3.2-5.2); Albumin/Globulin Ratio 1.6 (1.0-2.3); Alkaline Phosphatase 135 U/L (39-117); Bilirubin,Direct 1.6 mg/dL (0.0-0.3); Bilirubin,Total 4.4 mg/dL (0.0-1.0); Blood Urea Nitrogen 11 mg/dl (8-23); Calcium 8.3 mg/dl (8.6-10.4); Carbon Dioxide 23 mmol/L (22-30); Chloride 108 mmol/L (96-108); Gamma Glutamyl Transpeptidase 64 U/L (8-61); Glomerular Filtration Rate 100; Glucose 90 mg/dL (70-105); Lactate Dehydrogenase 171 U/L (94-250); Magnesium 1.8 mg/dL (1.6-2.5); Phosphorous 4.1 mg/dL (2.7-4.5); Potassium 3.8 mmol/L (3.3-5.1); Sodium 141 mmol/L (133-145); Triglycerides 109 mg/dl (<150); Uric Acid 3.2 mg/dL (2.5-8.0)
[2018-08-26 08:12] LABS: Anisocytosis FEW (NONE SEEN); Basophils % (Manual) 1 % (0-2); Eosinophils % (Manual) 1 % (0-7); Lymphocytes % 30 % (15-49); Macrocytosis 2+ (NONE SEEN); Monocytes % (Manual) 9 % (1-12); Platelet Estimate DECREASED (NORMAL); RBC Morphology ABNORM (NORMAL); Segmented Neutrophils % 59 % (38-78)
[2018-08-26] MEDS: fentaNYL 50 MCG PATCH TOPICAL SCH (09:24)
[2018-08-26] MEDS: RIFAXIMIN 550 MG TABLET PO SCH (09:29)
[2018-08-26] MEDS: LEVOFLOXACIN 500 MG TABLET PO SCH (09:35)
[2018-08-26] MEDS: LACTULOSE 20 GM/30 ML ORAL.SOL PO SCH (09:35)
[2018-08-26] MEDS: buPROPion 150 MG TAB.XL.24H PO SCH (09:36)
[2018-08-26] MEDS: GABAPENTIN 300 MG CAPSULE PO SCH (09:38)
--- NOTE | 2018-08-26 10:11 | Discharge Summary ---
Medical - DS: Prov Patient information: Note initiated : 08/26/18 at 10:04 am Service Date, if different from initiated Date: [] Patient: Thien Pacheco 63 y/o M admitted on 08/24/18 for altered mental status. Chief Complaint: [] Date of admission: 08/24/18 02:37 Discharge date: 08/26/18 Primary care physician: Cindy Hester Consults: 08/24/18 Consult to Physician [CONS] Stat Comment: Consulting Provider: Dada Ervin Reason For Exam: Physician to Consult Medical - DS: Meds - Discharge Medications Prescriptions: Lactulose [Cephulac] 30 gm PO TID #30 oral.[email or web address] Levofloxacin [Levaquin] 500 mg PO DAILY #5 tab Rifaximin [Xifaxan] 550 mg PO BID #60 tab Active and Home Medications: Home Medications Cyclobenzaprine [Flexeril] 10 mg PO TIDP PRN 04/05/18 [History Confirmed 08/24/18 Last Taken 08/20/18] Gabapentin [Neurontin] 300 mg PO TID 04/05/18 [History Confirmed 08/24/18 Last Taken 08/23/18] HYDROcodone/APAP 10/325MG [[place] 10-325Mg] 1 tab PO HS 04/05/18 [History Confirmed 08/24/18 Last Taken 08/23/18] LORazepam [Ativan] 1 mg PO BIDP PRN 04/05/18 [History Confirmed 08/24/18 Last Taken 08/23/18] Lisinopril [Zestril] 40 mg PO DAILY 04/05/18 [History Confirmed 08/24/18 Last Taken 08/23/18] Omeprazole [Prilosec] 20 mg PO ACB 04/05/18 [History Confirmed 08/24/18 Last Taken 08/23/18] amLODIPine [Norvasc] 5 mg PO DAILY 04/05/18 [History Confirmed 08/24/18 Last Taken Unknown] buPROPion HCL [Bupropion Xl] 150 mg PO DAILY 04/05/18 [History Confirmed 08/24/18 Last Taken 08/23/18 12:00] fentaNYL [Fentanyl] 50 mg TD Q48H 04/05/18 [History Confirmed 08/24/18 Last Taken 08/22/18] HYDROcodone/APAP 10/325MG [[place] 10-325Mg] 0.5 tab PO DAILY 08/24/18 [History Confirmed 08/24/18 Last Taken Unknown] Lactulose [Cephulac] 30 gm PO TID #30 oral.[email or web address] 08/26/18 [Rx Last Taken Unknown] Levofloxacin [Levaquin] 500 mg PO DAILY #5 tab 08/26/18 [Rx Last Taken Unknown] Rifaximin [Xifaxan] 550 mg PO BID #60 tab 08/26/18 [Rx Last Taken Unknown] Medical - DS: Hosp Hospital course: Discharge diagnoses * Hepatic encephalopathy -much improved with lactulose/rifaximin. Discharging today with advice to follow with GI in 7-10 days * Left lower lobe pneumonia likely community acquired-continue Levaquin for additional 5 days * End-stage liver disease secondary to alcoholic cirrhosis- MELD Na 23-90% mortality rate. Bilirubin 7 with elevated LFTs, INR 1.9. Patient has not followed up with GI except for endoscopy evaluation with Dr. More. Recommend outpatient follow-up with GI for better management of liver cirrhosis. Patient has been abstinent of alcohol over the last 6 weeks, aggressively counseled to remain abstinent. * History of hypertension continue amlodipine * Anxiety disorder continue bupropion * Neuropathy continue gabapentin * Pain management -start home dose fentanyl * GERD continue PPI Brief hospital course Mr. Pacheco is a 63 year old M with a history of alcoholic cirrhosis and hepatic encephalopathy. He was diagnosed with alcoholic cirrhosis after recent ER visit last month and was discharged on lactulose with follow-up advice with GI and primary care physician. Workup including paracentesis/liver failure was ordered. Patient has been doing well since then and has been abstinent of alcohol however over the last 48 hours he has been progressively somnolent and fatigued and has been laying on the bed all day. His Arlin found him lying naked from the waist below, and has not been able to hold a conversation or comprehend or think right. His however denies noticing nausea, bloody emesis or bloody stool. Patient further denies abdominal pain fever or shaking chills or or jaundice. He denies changes in medications. Initial workup was consistent with left lower lobe pneumonia over 140, elevated bilirubin at 7. Patient has been taking 3 times a day lactulose. He is also on multiple medications including hydrocodone and fentanyl. In the ER patient received Romazicon without any improvement. Subsequently hospitalist service was consulted At the time of evaluation patient is accompanied with his . He is able to answer simple questions. He is very slow to respond. Most of the history is obtained from review of medical records, ER physician and patient's . 08/25-patient seen in room along with at bedside. Feeling better since previous day with improved mentation. Currently on antibiotic coverage for pneumonia/rifaximin and lactulose. Multiple bowel movements. No overnight fev er or chills. More lucid. Was complaining of back pain/anxiolytic last night. 08/26- patient doing well. Mentation much improved. Following diet. Ambulating. Bilirubin downtrending. No overnight fever or chills. Cough improved. Discharging on additional 5 days of oral antibiotics along with rifaximin and lactulose with advice to follow up with Dr. More GI outpatient. Advised to refrain from alcohol. Discharge instructions and recommendations provided to patient Discharge diagnosis: . - Time Spent with Patient Total time spent providing and/or coordinating discharge services: Greater than 30 minutes Medical - DS: Exam - Constitutional Vitals: Vital Signs Temp Pulse Resp BP BP Pulse Ox 08/26/18 07:26 97.8 F 73 16 100/57 94 08/26/18 04:03 98.5 F 71 16 115/64 91 08/25/18 22:38 98.1 F 72 18 160/76 96 08/25/18 19:34 98.1 F 74 16 136/70 96 08/25/18 16:00 99.4 F H 71 12 123/68 95 08/25/18 12:00 98.0 F 70 18 125/70 94 Intake and Output 08/25/18 08/26/18 08/26/18 21:59 05:59 13:59 Intake Total 555 300 Balance 555 300 Intake: Oral 555 300 Other: Meal Dinner Percent of Meal Consumed 100% Feeding Ability Independent Stool Size Small Stool Color Brown Stool Consistency Loose # Bowel Movements 1 Weight 210 lb Medical - DS: Data Labs on day of discharge: Labs from last 24 hours 08/26/18 08/26/18 08/26/18 09:40 04:10 04:10 WBC 3.2 L RBC 3.18 L Hgb 11.7 L Hct 34.4 L MCV 108.1 H MCH 36.8 H MCHC 34.0 RDW 15.4 H Plt Count 67 L MPV 8.5 Total Counted 100 Seg Neutrophils % 59 Band Neutrophils % Not Reportable Lymphocytes % 30 Monocytes % (Manual) 9 Eosinophils % (Manual) 1 Basophils % (Manual) 1 Platelet Estimate Decreased A RBC Morphology Abnorm A Anisocytosis Few A Macrocytosis 2+ A Sodium 141 Potassium 3.8 Chloride 108 Carbon Dioxide 23 Anion Gap 10.0 BUN 11 Creatinine 0.7 GFR Calculation 100 Glucose 90 Uric Acid 3.2 Calcium 8.3 L Phosphorus 4.1 Magnesium 1.8 Total Bilirubin 4.4 H Direct Bilirubin 1.6 H GGT 64 H AST 54 H ALT 37 Alkaline Phosphatase 135 H Ammonia Pending Lactate Dehydrogenase 171 Total Protein 5.1 L Albumin 3.1 L Globulin 2.0 L Albumin/Globulin Ratio 1.6 Triglycerides 109 Procalcitonin Urine Color Urine Appearance Urine pH Ur Specific [place] Urine Protein Urine Glucose (UA) Urine Ketones Urine Occult Blood Urine Nitrate Urine Bilirubin Urine Ictotest Urine Urobilinogen Ur Leukocyte Esterase Urine RBC Urine WBC Ur Squamous Epith Cells Ur Transition Epith Cell Calcium Oxalate Crystal Urine Bacteria Hyaline Casts Urine Mucus Ur Culture Indicated? Ur L.pneumophila Ag 08/25/18 08/25/18 08/25/18 13:03 12:56 12:06 WBC RBC Hgb Hct MCV MCH MCHC RDW Plt Count MPV Total Counted Seg Neutrophils % Band Neutrophils % Lymphocytes % Monocytes % (Manual) Eosinophils % (Manual) Basophils % (Manual) Platelet Estimate RBC Morphology Anisocytosis Macrocytosis Sodium Potassium Chloride Carbon Dioxide Anion Gap BUN Creatinine GFR Calculation Glucose Uric Acid Calcium Phosphorus Magnesium Total Bilirubin Direct Bilirubin GGT AST ALT Alkaline Phosphatase Ammonia Lactate Dehydrogenase Total Protein Albumin Globulin Albumin/Globulin Ratio Triglycerides Procalcitonin < 0.05 Urine Color [place] Urine Appearance Clear Urine pH 5.0 Ur Specific [place] 1.029 Urine Protein 30 A Urine Glucose (UA) Negative Urine Ketones Neg Urine Occult Blood Neg Urine Nitrate Neg Urine Bilirubin 2.0 A Urine Ictotest Pos A Urine Urobilinogen 4.0 A Ur Leukocyte Esterase Neg Urine RBC 5 H Urine WBC 2 Ur Squamous Epith Cells < 1 Ur Transition Epith Cell < 1 Calcium Oxalate Crystal Few A Urine Bacteria 0 Hyaline Casts 1 Urine Mucus Many A Ur Culture Indicated? No Ur L.pneumophila Ag Pending 05/29/19 05/29/19 12:06 12:06 WBC 3.2 L RBC 3.21 L Hgb 11.7 L Hct 34.3 L MCV 107.0 H MCH 36.4 H MCHC 34.1 RDW 15.4 H Plt Count 64 L MPV 8.1 Total Counted 100 Seg Neutrophils % 74 Band Neutrophils % Not Reportable Lymphocytes % 23 Monocytes % (Manual) 3 Eosinophils % (Manual) Basophils % (Manual) Platelet Estimate Decreased A RBC Morphology Abnorm A Anisocytosis Macrocytosis 2+ A Sodium 142 Potassium 3.1 L Chloride 107 Carbon Dioxide 26 Anion Gap 9.0 BUN 10 Creatinine 0.9 GFR Calculation 91 Glucose 127 H Uric Acid 3.2 Calcium 8.5 L Phosphorus 2.4 L Magnesium 1.9 Total Bilirubin 5.4 H Direct Bilirubin 1.8 H GGT 67 H AST 56 H ALT 36 Alkaline Phosphatase 129 H Ammonia Lactate Dehydrogenase 172 Total Protein 5.2 L Albumin 3.1 L Globulin 2.1 L Albumin/Globulin Ratio 1.5 Triglycerides 145 Procalcitonin Urine Color Urine Appearance Urine pH Ur Specific [place] Urine Protein Urine Glucose (UA) Urine Ketones Urine Occult Blood Urine Nitrate Urine Bilirubin Urine Ictotest Urine Urobilinogen Ur Leukocyte Esterase Urine RBC Urine WBC Ur Squamous Epith Cells Ur Transition Epith Cell Calcium Oxalate Crystal Urine Bacteria Hyaline Casts Urine Mucus Ur Culture Indicated? Ur L.pneumophila Ag Medical - DS: A/P - Patient/Caregiver Discharge Instructions Activity: increase activity as tolerated Diet: Low Sodium (2gm) Additional Instructions: Follow-up with GI 7-[address] More continue lactulose and rifaximin Follow-up PCP in 5-7 days Refrain from alcohol Return to ER if bloody emesis/increasing jaundice, mental status change Prescriptions: Lactulose [Cephulac] 30 gm PO TID #30 oral.[email or web address] Levofloxacin [Levaquin] 500 mg PO DAILY #5 tab Rifaximin [Xifaxan] 550 mg PO BID #60 tab - Problem Maintenance (1) Hepatic encephalopathy Status: Acute - Follow up Plan Follow up with: Bryce Strickland MD [Physician] - 08/31/18 8:30 am (Please arrive 15 minutes early.) Cindy Hester MD [Primary Care Provider] - Disposition: Home, Self-Care Prognosis: Fair Rehab Potential: Fair I certify that the patient requires SNF services: No Overall status at discharge: patient is progressing back to baseline Medical - DS: Qual - VTE Deep Vein Thrombosis/Pulmonary Embolism Present on Admission: No
== END 2018-08-26 11:45 | disposition home or self-care (01) ==
LOC: MEDSUR 21:28 → ED 21:28 → MEDSUR 08-24 02:35
PROVIDERS: ADMIT Internal Medicine; ATTEND Internal Medicine

== ENCOUNTER 2018-09-21 16:04 | Observation (INO) ==
[2018-09-21] MEDS ORDERED: SPIRONOLACTONE 25 MG TABLET PO ONE (16:36)
[2018-09-21] MEDS ORDERED: FUROSEMIDE 40 MG/4 ML VIAL IV ONE (16:36)
--- NOTE | 2018-09-21 16:40 | Emergency Department Note ---
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 He has known ascites and has not had a recent paracentesis. He is on spironolactone but not furosemide. In the interim from the previous admission and discharge about 33 days ago, he has seen Dr. More for his liver failure and was placed on a new medicine for hepatic encephalopathy. However at this time he is still on lactulose and Xifaxan. He also followed up with his primary care provider Dr. Hester who is managing his diuretics. He is not having any fever belly pain. Decreased level of activity and noted swelling of his legs. His notes that he has not had any alcohol for over 6 weeks now He was discharged from our facility on 08/19/[address] Jerry. I reviewed that discharge note-in fact I was the one who took care of him in the ER with that episode - Related Data Home Medications Medication Instructions Recorded Confirmed Cyclobenzaprine [Flexeril] 10 mg PO TIDP PRN 04/05/18 09/21/18 Gabapentin [Neurontin] 300 mg PO BID 04/05/18 09/21/18 HYDROcodone/APAP 10/325MG [[place] 1 tab PO QID 04/05/18 09/21/18 10-325Mg] LORazepam [Ativan] 1 mg PO TIDP PRN 04/05/18 09/21/18 Lisinopril [Zestril] 40 mg PO DAILY 04/05/18 09/21/18 Omeprazole [Prilosec] 20 mg PO ACB 04/05/18 09/21/18 amLODIPine [Norvasc] 5 mg PO DAILY 04/05/18 09/21/18 buPROPion HCL [Bupropion Xl] 150 mg PO DAILY 04/05/18 09/21/18 fentaNYL [Fentanyl] 50 mg TD Q48H 04/05/18 09/21/18 Lactulose [Cephulac] 60 gm PO BID 09/21/18 09/21/18 Spironolactone [Aldactone] 25 mg PO DAILY 09/21/18 09/21/18 Previous Rx's Medication Instructions Recorded Rifaximin [Xifaxan] 550 mg PO BID #60 tab 08/26/18 Allergies Allergy/AdvReac Type Severity Reaction Status Date / Time No Known Drug Allergies Allergy Verified 04/05/18 02:14 Review of Systems All systems ED: reviewed and negative except as stated. Past Medical History - Past Medical History Attestation: Yes: The following information was validated with the patient. Medical history: Reports: hypertension, liver disease, other (cirrhosis. Hepatic encephalopathy.) Psychiatric history: Reports: anxiety Surgical history ED: Reports: other - Social History smoking status: Former smoker Alcohol use: Reports: Occasionally Drug use: Reports: opiates Physical Exam He is slightly confused here today but sitting up without difficulty or respir atory distress. Normocephalic atraumatic. Conjunctive are clear sclerae nonicteric. No nasal discharge or congestion. Oropharynx pink moist. Neck is supple without lymphadenopathy thyromegaly or carotid bruit. Heart is regular rate and rhythm no murmur appreciated. Lungs are clear to auscultation bilaterally without wheezes rales rhonchi or respiratory distress. Abdomen is soft but it is distended with what looks like mild to moderate ascites. I cannot definitively say that he has a fluid wave; this is equivocal. No peritoneal signs guarding rigidity. Legs with bilateral 1+ pitting edema. He does have a light johnston-brownish ecchymoses over the second right toe medial portion of the PIP. Mildly tender-he does not remember how this came about. His short-term memory is not good but he has known hepatic encephalopathy on 2 medicines for this. He is however alert and able to answer questions Limitations: no limitations Course Vital Signs Temperature 97.6 F 09/21/18 16:06 Pulse Rate 73 09/21/18 16:06 Respiratory Rate 18 09/21/18 16:06 Blood Pressure 148/82 09/21/18 16:06 Pulse Oximetry (%) 94 09/21/18 16:06 Temperature 97.6 F 09/21/18 16:06 Pulse Rate 72 09/21/18 19:07 Respiratory Rate 10 L 09/21/18 19:01 Blood Pressure 165/80 09/21/18 19:01 Pulse Oximetry (%) 96 09/21/18 19:07 Shortness of Breath/Dyspnea - Lab Data Lab results reviewed: Yes I reviewed the patient's lab results. Result diagrams: 09/21/18 16:25 09/21/18 16:25 Lab Results 09/21/18 09/21/18 09/21/18 Range/Units 16:25 16:25 16:25 WBC 4.8 (4.5-11.0) K/mcL RBC 3.69 L (4.50-5.90) M/mcL Hgb 13.5 (13.5-16.5) g/dL Hct 39.4 L (41.0-55.0) % MCV 106.7 H (80.0-100.0) fL MCH 36.7 H (26.0-34.0) pg MCHC 34.3 (31.0-36.0) g/dL RDW 15.8 H (11.5-14.5) % Plt Count 85 L (140-440) K/mcL MPV 8.7 (7.4-10.4) fL Gran % 75.5 (38.0-78.0) % Lymph % (Auto) 16.5 (15.5-49.0) % Keith % (Auto) 6.5 (1.0-12.0) % Eos % (Auto) 1.2 (0.0-7.0) % Baso % (Auto) 0.3 (0.0-2.0) % Gran # 3.6 (1.8-8.0) K/mcL Lymph # (Auto) 0.8 L (1.5-4.8) K/mcL Keith # (Auto) 0.3 (0.1-0.9) K/mcL Eos # (Auto) 0.1 (0.0-0.7) K/mcL Baso # (Auto) 0 (0.0-0.3) K/mcL PT (11.9-14.5) sec INR (0.9-1.1) Sodium 137 (133-145) mmol/L Potassium 4.2 (3.3-5.1) mmol/L Chloride 103 (96-108) mmol/L Carbon Dioxide 23 (22-30) mmol/L Anion Gap 11.0 (8-16) BUN 9 (8-23) mg/dl Creatinine 0.7 (0.7-1.2) mg/dl GFR Calculation 100 Glucose 163 H (70-105) mg/dL Calcium 8.2 L (8.6-10.4) mg/dl Total Bilirubin 6.1 H (0.0-1.0) mg/dL GGT (8-61) U/L AST 53 H (0-37) U/l ALT 38 (0-40) U/l Alkaline Phosphatase 161 H (39-117) U/L Ammonia (16-60) umol/L Troponin T < 0.01 (0-0.03) ng/ml NT-Pro-B Natriuret Pep 151.6 H (0-125) pg/ml Total Protein 5.1 L (5.9-8.4) gm/dL Albumin 3.1 L (3.2-5.2) gm/dL Globulin 2.0 L (2.2-3.7) gm/dL Albumin/Globulin Ratio 1.6 (1.0-2.3) Lipase (7-60) U/L Urine Color Urine Appearance Urine pH (5.0-9.0) Ur Specific [place] (1.000-1.035) Urine Protein (NEG) mg/dL Urine Glucose (UA) (NEG) mg/dL Urine Ketones (NEG) mg/dL Urine Occult Blood (<0.03) mg/dL Urine Nitrate (NEG) Urine Bilirubin (NEG) mg/dL Urine Urobilinogen (NEG) mg/dL Ur Leukocyte Esterase (NEG) /uL Urine RBC (0-1) /hpf Urine WBC (0-4) /hpf Ur Squamous Epith Cells (0-4) /hpf Urine Bacteria (0) /hpf Hyaline Casts (0-2) /lpf Urine Mucus (0) /hpf Ur Culture Indicated? 09/21/18 09/21/18 09/21/18 Range/Units 16:25 16:42 16:42 WBC (4.5-11.0) K/mcL RBC (4.50-5.90) M/mcL Hgb (13.5-16.5) g/dL Hct (41.0-55.0) % MCV (80.0-100.0) fL MCH (26.0-34.0) pg MCHC (31.0-36.0) g/dL RDW (11.5-14.5) % Plt Count (140-440) K/mcL MPV (7.4-10.4) fL Gran % (38.0-78.0) % Lymph % (Auto) (15.5-49.0) % Keith % (Auto) (1.0-12.0) % Eos % (Auto) (0.0-7.0) % Baso % (Auto) (0.0-2.0) % Gran # (1.8-8.0) K/mcL Lymph # (Auto) (1.5-4.8) K/mcL Keith # (Auto) (0.1-0.9) K/mcL Eos # (Auto) (0.0-0.7) K/mcL Baso # (Auto) (0.0-0.3) K/mcL PT 19.8 H (11.9-14.5) sec INR 1.7 H (0.9-1.1) Sodium (133-145) mmol/L Potassium (3.3-5.1) mmol/L Chloride (96-108) mmol/L Carbon Dioxide (22-30) mmol/L Anion Gap (8-16) BUN (8-23) mg/dl Creatinine (0.7-1.2) mg/dl GFR Calculation Glucose (70-105) mg/dL Calcium (8.6-10.4) mg/dl Total Bilirubin (0.0-1.0) mg/dL GGT 61 (8-61) U/L AST (0-37) U/l ALT (0-40) U/l Alkaline Phosphatase (39-117) U/L Ammonia 63 H (16-60) umol/L Troponin T (0-0.03) ng/ml NT-Pro-B Natriuret Pep (0-125) pg/ml Total Protein (5.9-8.4) gm/dL Albumin (3.2-5.2) gm/dL Globulin (2.2-3.7) gm/dL Albumin/Globulin Ratio (1.0-2.3) Lipase 31 (7-60) U/L Urine Color Urine Appearance Urine pH (5.0-9.0) Ur Specific [place] (1.000-1.035) Urine Protein (NEG) mg/dL Urine Glucose (UA) (NEG) mg/dL Urine Ketones (NEG) mg/dL Urine Occult Blood (<0.03) mg/dL Urine Nitrate (NEG) Urine Bilirubin (NEG) mg/dL Urine Urobilinogen (NEG) mg/dL Ur Leukocyte Esterase (NEG) /uL Urine RBC (0-1) /hpf Urine WBC (0-4) /hpf Ur Squamous Epith Cells (0-4) /hpf Urine Bacteria (0) /hpf Hyaline Casts (0-2) /lpf Urine Mucus (0) /hpf Ur Culture Indicated? 09/21/18 Range/Units 17:50 WBC (4.5-11.0) K/mcL RBC (4.50-5.90) M/mcL Hgb (13.5-16.5) g/dL Hct (41.0-55.0) % MCV (80.0-100.0) fL MCH (26.0-34.0) pg MCHC (31.0-36.0) g/dL RDW (11.5-14.5) % Plt Count (140-440) K/mcL MPV (7.4-10.4) fL Gran % (38.0-78.0) % Lymph % (Auto) (15.5-49.0) % Keith % (Auto) (1.0-12.0) % Eos % (Auto) (0.0-7.0) % Baso % (Auto) (0.0-2.0) % Gran # (1.8-8.0) K/mcL Lymph # (Auto) (1.5-4.8) K/mcL Keith # (Auto) (0.1-0.9) K/mcL Eos # (Auto) (0.0-0.7) K/mcL Baso # (Auto) (0.0-0.3) K/mcL PT (11.9-14.5) sec INR (0.9-1.1) Sodium (133-145) mmol/L Potassium (3.3-5.1) mmol/L Chloride (96-108) mmol/L Carbon Dioxide (22-30) mmol/L Anion Gap (8-16) BUN (8-23) mg/dl Creatinine (0.7-1.2) mg/dl GFR Calculation Glucose (70-105) mg/dL Calcium (8.6-10.4) mg/dl Total Bilirubin (0.0-1.0) mg/dL GGT (8-61) U/L AST (0-37) U/l ALT (0-40) U/l Alkaline Phosphatase (39-117) U/L Ammonia (16-60) umol/L Troponin T (0-0.03) ng/ml NT-Pro-B Natriuret Pep (0-125) pg/ml Total Protein (5.9-8.4) gm/dL Albumin (3.2-5.2) gm/dL Globulin (2.2-3.7) gm/dL Albumin/Globulin Ratio (1.0-2.3) Lipase (7-60) U/L Urine Color Mona Urine Appearance Clear Urine pH 6.0 (5.0-9.0) Ur Specific [place] 1.016 (1.000-1.035) Urine Protein Neg (NEG) mg/dL Urine Glucose (UA) Negative (NEG) mg/dL Urine Ketones Neg (NEG) mg/dL Urine Occult Blood Neg (<0.03) mg/dL Urine Nitrate Neg (NEG) Urine Bilirubin Neg (NEG) mg/dL Urine Urobilinogen 4.0 A (NEG) mg/dL Ur Leukocyte Esterase Neg (NEG) /uL Urine RBC < 1 (0-1) /hpf Urine WBC 1 (0-4) /hpf Ur Squamous Epith Cells 0 (0-4) /hpf Urine Bacteria 0 (0) /hpf Hyaline Casts 3 H (0-2) /lpf Urine Mucus Mod (0) /hpf Ur Culture Indicated? No - Radiology Data Radiology results reviewed: Yes I reviewed the patient's radiology results. Ultrasound of the liver and belly does not show enough ascites to do a paracente sis safely but he certainly has some ascites Chest x-ray shows bilateral pleural effusion worst on the right Right second toe x-ray shows tiny fracture hairline even nondisplaced - EKG Data EKG attestation: Yes I reviewed and interpreted this EKG. EKG results narrative: EKG shows a rate of 78 normal sinus rhythm without evidence of ischemia. Low voltage in the anterior leads Disposition Pt seen by NURSING MANAGER/PA only: No Clinical Impression: Hepatic encephalopathy, Pleural effusion Liver cirrhosis Qualifiers: Hepatic cirrhosis type: alcoholic cirrhosis Ascites presence: with ascites Qualified Code(s): K70.31 - Alcoholic cirrhosis of liver with ascites Toe fracture, right Qualifiers: Encounter type: initial encounter Toe: lesser toe Fracture type: closed Phalanx: distal Fracture alignment: nondisplaced Qualified Code(s): S92.534A - Nondisplaced fracture of distal phalanx of right lesser toe(s), initial encounter for closed fracture Summary: Work-up started with imaging and laboratory. We will go ahead and start treatment for the ascites with spironolactone and furosemide. Ordered ultrasound-guided paracentesis X-ray of the right second toe shows fracture with minimal displacement. Again he does not recall specific injury Chest x-ray shows pleural effusion. Diuresis already ordered. This is likely secondary to his liver failure and ascites Ultrasound did not show enough fluid in the belly to do a paracentesis although he certainly has ascites He was urinating well on the spironolactone and the furosemide. Calculated meld score-he has a 3-month mortality of about 6% with a meld score of 19 Briefly discussed his liver disease and mortality. Patient and his expressed some surprise regarding end-stage liver disease because they had a different impression from Dr. More. They asked about possible transplant-I advised him they would need to talk to the GI doctor about this I do believe this patient needs to come in the hospital for diuresis as he is clearly short of breath from the bilateral pleural effusions and pulmonary congestion. Likely he will need an echocardiogram as well. I discussed this case with our hospitalist, Dr. Singh, who agreed to accept the patient for further care in the hospital Disposition: Xfer As Inpt ([facility]) Condition: Fair Referrals: Cindy Hester MD [Primary Care Provider] -
--- NOTE | 2018-09-21 17:27 | XRay Report ---
INDICATION: Dyspnea TECHNIQUE: PA and lateral upright chest x-ray COMPARISON: Previous chest x-rays dated 08/23/2018, 07/06/2018, 06/25/2012 FINDINGS:Small to moderate bilateral pleural effusions are increased since 08/23/2018. Bilateral lower lobe infiltrate or atelectasis. Pneumonia is possible. No significant change in heart size. Pulmonary vascularity is prominent with probable mild apical redistribution and appearance consistent with pulmonary congestion. There are no septal lines or other definite evidence for significant pulmonary edema. Angelita and mediastinum are negative. IMPRESSION: 1. Small to moderate pleural effusions bilaterally, increased since 08/23/2018 2. Bilateral lobe atelectasis or infiltrate 3. Probable pulmonary congestion Interpreted and Authenticated by: Jimi Marte 09/21/18
--- NOTE | 2018-09-21 17:30 | XRay Report ---
CLINICAL INFORMATION: Right second toe injury and bruising TECHNIQUE: AP, oblique, lateral right second digit COMPARISON: None. FINDINGS: No acute fracture. No cortical destruction or evidence for osteomyelitis. No periosteal new bone formation. There is no soft tissue gas or radiopaque foreign body. IMPRESSION: No acute or focal abnormality Interpreted and Authenticated by: Jimi Marte 09/21/18
--- NOTE | 2018-09-21 17:32 | Ultrasound Report ---
CLINICAL INFORMATION: Abdominal distention TECHNIQUE: Limited abdominal ultrasound to evaluate for possible paracentesis COMPARISON: Previous CT scan dated 07/07/2018 FINDINGS: Small amount of ascites in both the right lower quadrant and left lower quadrant. This does not appear to be of large enough volume to safely perform paracentesis. If a diagnostic study is necessary to exclude peritonitis this could be performed under ultrasound guidance. IMPRESSION: Small amount of ascitic fluid in the lower quadrants bilaterally. Ultrasound-guided paracentesis was not performed Interpreted and Authenticated by: Jimi Marte 09/21/18
[2018-09-21 17:38] LABS: Basophils # (Auto) 0 K/mcL (0.0-0.3); Basophils % (Auto) 0.3 % (0.0-2.0); Eosinophils # (Auto) 0.1 K/mcL (0.0-0.7); Eosinophils % (Auto) 1.2 % (0.0-7.0); Granulocytes % (Auto) 75.5 % (38.0-78.0); Hematocrit 39.4 % (41.0-55.0); Hemoglobin 13.5 g/dL (13.5-16.5); Lymphocytes # (Auto) 0.8 K/mcL (1.5-4.8); Lymphocytes % (Auto) 16.5 % (15.5-49.0); Mean Cell Volume 106.7 fL (80.0-100.0); Mean Corpuscular HGB Conc 34.3 g/dL (31.0-36.0); Mean Platelet Volume 8.7 fL (7.4-10.4); Monocytes # (Auto) 0.3 K/mcL (0.1-0.9); Monocytes % (Auto) 6.5 % (1.0-12.0); Platelet Count 85 K/mcL (140-440); RBC 3.69 M/mcL (4.50-5.90); Red Cell Distribution Width 15.8 % (11.5-14.5); WBC 4.8 K/mcL (4.5-11.0)
[2018-09-21 17:42] LABS: INR 1.7 (0.9-1.1); Prothrombin Time 19.8 sec (11.9-14.5)
[2018-09-21 17:58] LABS: Lipase 31 U/L (7-60)
[2018-09-21 18:21] LABS: ALT/SGPT 38 U/l (0-40); AST/SGOT 53 U/l (0-37); Albumin 3.1 gm/dL (3.2-5.2); Albumin/Globulin Ratio 1.6 (1.0-2.3); Alkaline Phosphatase 161 U/L (39-117); Bilirubin,Total 6.1 mg/dL (0.0-1.0); Blood Urea Nitrogen 9 mg/dl (8-23); Calcium 8.2 mg/dl (8.6-10.4); Carbon Dioxide 23 mmol/L (22-30); Chloride 103 mmol/L (96-108); Glomerular Filtration Rate 100; Glucose 163 mg/dL (70-105); Potassium 4.2 mmol/L (3.3-5.1); Sodium 137 mmol/L (133-145); proBNP 151.6 pg/ml (0-125)
[2018-09-21 18:47] LABS: Appearance,Urine CLEAR; Bacteria,Urine 0 /hpf (0); Bilirubin,Urine NEG (NEG); Color,Urine AMBER; Culture Indicated,Urine NO; Glucose,Urine (UA) NEGATIVE (NEG); Ketones,Urine NEG (NEG); Leukocyte Esterase,Urine NEG /uL (NEG); Mucus,Urine MOD /hpf (0); Nitrate,Urine NEG (NEG); Protein,Urine NEG (NEG); Specific Gravity,Urine 1.016 (1.000-1.035); Urine Blood NEG mg/dL (<0.03); Urine Hyaline Cast 3 /lpf (0-2); Urine RBC < 1 /hpf (0-1); Urine Squamous Epithelial Cell 0 /hpf (0-4); Urine WBC 1 /hpf (0-4)
--- NOTE | 2018-09-21 20:41 | Internal Med History&Physical ---
Medical - H&P: [facility] Patient information: Note initiated : 09/21/18 at 8:37 pm Service Date, if different from initiated Date: [] Patient: Thien Pacheco a 63 y/o M admitted on for increase edema, abd girth, increase sob with exert. Chief Complaint: [] History of present illness: Mr. Pacheco is a 63 year old M with increased edema in his legs and abdomen. He was diagnosed with cirrhosis alcohol related and july and admitted at that time for hepatic encephalopathy. He was started on lactulose and rifaximin and Aldactone. He follows with Dr. More outpatient we discussed EGD and colonoscopy. Patient used to be a heavy drinker for years he was a daily drinker until about 6 months ago, he says his daily alcohol was typically several shots of tequila and 3-4 beers. Since then he is cut back quite a bit. And has not had anything to drink since his last hospitalization. Who presents the ED this time because of increased swelling in his legs and abdomen. He did not have swelling last time. He denies any confusion like he had last admission. He is been taking his lactulose. He was started on Aldact one 25 mg daily, I do not see Lasix. Takes chronic pain meds. No other new medication changes. In the ED he is a chest x-ray which does show some pulmonary congestion. Bilirubin similar to last admission is also noted to have plan is low and other numbers are similar to last admission. He does state that he has had increased dyspnea on exertion over the past month, no new increase in the past few days, states that is stable. Review of Systems: Pertinent positive as above. Denies headache/fever/chills/nausea/vomiting/chest or abdominal pain/cough/dyspnea/. Many 10 point review of system reviewed negative Medical - H&P: PMH Medical history: Past medical history: Alcohol abuse Alcoholic cirrhosis Hypertension GERD Chronic low back pain from work injury years ago Depression Past surgical history: Low back surgery x3 from a work injury years ago Left shoulder surgery Family history: Mother and father with both healthy Social history: Patient quit smoking years ago about 40 Used to drink daily for years including at least several drinks of tequila with 3-4 beers on a daily basis but cut back 6 months ago, denies alcohol since last admission Lives at home with his Medical - H&P: Meds Home Medications Medication Instructions Recorded Confirmed Type Cyclobenzaprine [Flexeril] 10 mg PO TIDP PRN 04/05/18 09/21/18 History Gabapentin [Neurontin] 300 mg PO BID 04/05/18 09/21/18 History HYDROcodone/APAP 10/325MG [[place] 1 tab PO QID 04/05/18 09/21/18 History 10-325Mg] LORazepam [Ativan] 1 mg PO TIDP PRN 04/05/18 09/21/18 History Lisinopril [Zestril] 40 mg PO DAILY 04/05/18 09/21/18 History Omeprazole [Prilosec] 20 mg PO ACB 04/05/18 09/21/18 History amLODIPine [Norvasc] 5 mg PO DAILY 04/05/18 09/21/18 History buPROPion HCL [Bupropion Xl] 150 mg PO DAILY 04/05/18 09/21/18 History fentaNYL [Fentanyl] 50 mg TD Q48H 04/05/18 09/21/18 History Rifaximin [Xifaxan] 550 mg PO BID #60 tab 08/26/18 09/21/18 Rx Lactulose [Cephulac] 60 gm PO BID 09/21/18 09/21/18 History Spironolactone [Aldactone] 25 mg PO DAILY 09/21/18 09/21/18 History Allergies Allergy/AdvReac Type Severity Reaction Status Date / Time No Known Drug Allergies Allergy Verified 04/05/18 02:14 Medical - H&P: Exam - Constitutional Vitals: Temp Pulse Resp BP Pulse Ox 97.6 F 74 14 129/67 95 09/21/18 16:06 09/21/18 20:01 09/21/18 20:01 09/21/18 20:01 09/21/18 20:01 Exam: General: Alert, Awake, No acute Distress Eyes/N/T: EOMI, PEERL, DMM, scleral icterus Head/Neck: neck supple, normocephalic atraumatic CV: RRR, No murmurs, normal s1/s2 Pulm: Clear b/l, no wheezing/rhonchi/rales Abd: soft, distended, nontender, +BS x4 Ext: no clubbing/cyanosis, 2+ b/l LE edema Neuro: Alert, no focal deficits, moves all extremities, CN 2-12 grossly intact, symmetrical strength b/l upper/lower, sensations intact b/l upper/lower Skin: warm/dry Medical - H&P: Reslt - Labs CBC & Chem 7: 09/21/18 16:25 09/21/18 16:25 Labs: Short CBC 09/21/18 Range/Units 16:25 WBC 4.8 (4.5-11.0) K/mcL Hgb 13.5 (13.5-16.5) g/dL Hct 39.4 L (41.0-55.0) % Plt Count 85 L (140-440) K/mcL BMP 09/21/18 16:25 Sodium 137 Potassium 4.2 Chloride 103 Carbon Dioxide 23 BUN 9 Creatinine 0.7 Glucose 163 H Calcium 8.2 L Cardiac Enzymes 09/21/18 Range/Units 16:25 Troponin T < 0.01 (0-0.03) ng/ml Liver Function 09/21/18 09/21/18 Range/Units 16:25 16:42 Total Bilirubin 6.1 H (0.0-1.0) mg/dL GGT 61 (8-61) U/L AST 53 H (0-37) U/l ALT 38 (0-40) U/l Alkaline Phosphatase 161 H (39-117) U/L Albumin 3.1 L (3.2-5.2) gm/dL Urine 09/21/18 Range/Units 17:50 Urine Color Mona Urine Appearance Clear Urine pH 6.0 (5.0-9.0) Ur Specific [place] 1.016 (1.000-1.035) Urine Protein Neg (NEG) mg/dL Urine Glucose (UA) Negative (NEG) mg/dL - Impressions Chest x-ray with bilateral effusions more noticeable and some cephalization. Medical - H&P: A/P - Narrative A/P Narrative: A: *Decompensated cirrhosis with ascites and peripheral edema: -with sequelae of hypoalbuminemia, thrombocytopenia, coagulopathy, h yperbilirubinemia -MELD=19 (6% 3-mo mortality) -Not enough ascites to drain per imaging at this time *Dyspnea on exertion over the past month: Stable at this time *Alcoholic cirrhosis: Recently diagnosed *Alcohol abuse: Has cut back significantly and has not had any since last admission *HTN: On amlodipine and lisinopril *GERD: On PPI *Chronic low back pain: Secondary to work injury years ago, on fentanyl Flexeril and [place] *Right second distal phalanx fracture: *Macrocytosis: Likely secondary to alcohol abuse P: -start lasix/aldactone 40:100 -continue lactulose and rifaximin -Change PPI to H2 kecia; stop Norvasc given side effect of edema, decreased bupropion for hepatic impairment -Echo pending -Check B12 folate - -Follow-up with Dr. Strickland outpatient -ppx: lovenox
[2018-09-21] MEDS ORDERED: RIFAXIMIN 550 MG PO SCH (22:08)
[2018-09-21] MEDS ORDERED: METOCLOPRAMIDE 10 MG/2 ML VIAL IV PRN (22:08)
[2018-09-21] MEDS ORDERED: MAGNESIUM SULFATE 2 GM/50 ML BAG IV PRN (22:08)
[2018-09-21] MEDS ORDERED: ACETAMINOPHEN 325 MG TABLET PO PRN (22:08)
[2018-09-21] MEDS ORDERED: ONDANSETRON 4 MG/2 ML VIAL IV PRN (22:08)
[2018-09-21] MEDS ORDERED: LACTULOSE 20 GM/30 ML ORAL.SOL PO PRN (22:08)
[2018-09-21] MEDS ORDERED: POTASSIUM CHLORIDE 20 MEQ TABLET PO PRN ×2 (22:08)
[2018-09-21] MEDS ORDERED: CYCLOBENZAPRINE 10 MG TABLET PO PRN (22:08)
[2018-09-21] MEDS ORDERED: FENTANYL TD SCH (22:08)
[2018-09-21] MEDS ORDERED: POTASSIUM CHLORIDE 40 MEQ in DEXTROSE 5% IN WATER 500 ML IV PRN (22:08)
[2018-09-21] MEDS ORDERED: IPRATROPIUM/ALBUTEROL 3 ML AMPUL.NEB NEB PRN (22:08)
[2018-09-21] MEDS ORDERED: FAMOTIDINE 20 MG TABLET PO ONE (22:53)
[2018-09-21] MEDS ORDERED: HYDROcodone/APAP 10/325MG TABLET PO ONE (22:53)
[2018-09-21] MEDS ORDERED: LACTULOSE 20 GM/30 ML ORAL.SOL ONE (22:54)
[2018-09-21] MEDS ORDERED: GABAPENTIN 300 MG CAPSULE ONE (23:03)
[2018-09-21] MEDS ORDERED: LORazepam 1 MG TABLET ONE (23:16)
[2018-09-21] MEDS: 0.9 % SODIUM CHLORIDE 10 ML SYRINGE IV SCH (23:19)
[2018-09-21] MEDS: FOLIC ACID 1 MG TABLET PO SCH (23:19)
[2018-09-21] MEDS: HYDROcodone/APAP 10/325MG TABLET PO SCH (23:20)
[2018-09-21] MEDS: GABAPENTIN 300 MG CAPSULE PO SCH (23:20)
[2018-09-21] MEDS: LACTULOSE 20 GM/30 ML ORAL.SOL PO SCH (23:20)
[2018-09-21] MEDS: FAMOTIDINE 20 MG TABLET PO SCH (23:20)
[2018-09-21] MEDS: THIAMINE 100 MG TABLET PO SCH (23:21)
[2018-09-21 23:33] LABS: Folate 4.5 ng/mL (4.2-19.9)
[2018-09-21 23:44] LABS: Vitamin B12 > 2000 pg/ml (232-1245)
[2018-09-22] MEDS: 0.9 % SODIUM CHLORIDE 10 ML SYRINGE IV SCH ×3 (06:07→20:53)
[2018-09-22 06:11] LABS: Basophils # (Auto) 0 K/mcL (0.0-0.3); Basophils % (Auto) 0.4 % (0.0-2.0); Eosinophils # (Auto) 0.1 K/mcL (0.0-0.7); Eosinophils % (Auto) 1.7 % (0.0-7.0); Granulocytes % (Auto) 64.7 % (38.0-78.0); Hematocrit 35.3 % (41.0-55.0); Hemoglobin 11.9 g/dL (13.5-16.5); Lymphocytes # (Auto) 0.9 K/mcL (1.5-4.8); Mean Corpuscular HGB Conc 33.7 g/dL (31.0-36.0); Mean Platelet Volume 8.7 fL (7.4-10.4); Monocytes # (Auto) 0.4 K/mcL (0.1-0.9); Monocytes % (Auto) 10.2 % (1.0-12.0); Platelet Count 73 K/mcL (140-440); RBC 3.27 M/mcL (4.50-5.90); Red Cell Distribution Width 15.7 % (11.5-14.5)
[2018-09-22 06:28] LABS: ALT/SGPT 36 U/l (0-40); AST/SGOT 52 U/l (0-37); Albumin 2.9 gm/dL (3.2-5.2); Albumin/Globulin Ratio 1.5 (1.0-2.3); Alkaline Phosphatase 131 U/L (39-117); Bilirubin,Direct 1.4 mg/dL (0.0-0.3); Bilirubin,Total 5.4 mg/dL (0.0-1.0); Blood Urea Nitrogen 8 mg/dl (8-23); Calcium 8.5 mg/dl (8.6-10.4); Carbon Dioxide 27 mmol/L (22-30); Chloride 103 mmol/L (96-108); Globulin 1.9 gm/dL (2.2-3.7); Glomerular Filtration Rate 100; Glucose 123 mg/dL (70-105); Lactate Dehydrogenase 187 U/L (94-250); Magnesium 1.9 mg/dL (1.6-2.5); Phosphorous 3.6 mg/dL (2.7-4.5); Potassium 4.1 mmol/L (3.3-5.1); Sodium 141 mmol/L (133-145); Triglycerides 88 mg/dl (<150); Uric Acid 4.3 mg/dL (2.5-8.0)
--- NOTE | 2018-09-22 07:00 | Internal Med Progress Note ---
Medical - PN: Subj Patient information: Note initiated : 09/22/18 at 6:55 am Service Date, if different from initiated Date: [] Patient: Thien Pacheco 63 y/o M admitted on 09/21/18 for increase edema, abd girth, increase sob with exert. Chief Complaint: [] Interval history: Mr. Pacheco is a 63 year old M with increased edema in his legs and abdomen. He was diagnosed with cirrhosis alcohol related and july and admitted at that time for hepatic encephalopathy. He was started on lactulose and rifaximin and Aldactone. He follows with Dr. More outpatient we discussed EGD and colonoscopy. Patient used to be a heavy drinker for years he was a daily drinker until about 6 months ago, he says his daily alcohol was typically several shots of tequila and 3-4 beers. Since then he is cut back quite a bit. And has not had anything to drink since his last hospitalization. Who presents the ED this time because of increased swelling in his legs and abdomen. He did not have swelling last time. He denies any confusion like he had last admission. He is been taking his lactulose. He was started on Aldacto ne 25 mg daily, I do not see Lasix. Takes chronic pain meds. No other new medication changes. In the ED he is a chest x-ray which does show some pulmonary congestion. Bilirubin similar to last admission is also noted to have plan is low and other numbers are similar to last admission. He does state that he has had increased dyspnea on exertion over the past month, no new increase in the past few days, states that is stable. 09/22 Able to sleep all right last night. No new complaints. No overnight events. Refused physical therapy this morning. Review of Systems: denies headache/fever/chills/nausea/vomiting/chest or abdominal pain/cough/dyspnea/diarrhea. Otherwise see above. - Constitutional Vitals: Vital Signs Temp Pulse Resp BP Pulse Ox 98.5 F 74 18 111/54 93 09/22/18 04:02 09/22/18 04:02 09/22/18 04:02 09/22/18 04:02 09/22/18 04:02 Period Temp Pulse Resp BP Sys/Montoya Pulse Ox Last 24 Hr 97.6 F-98.5 F 68-80 9-20 111-165/54-141 93-98 Intake and Output 09/21/18 09/22/18 09/22/18 21:59 05:59 13:59 Intake Total 200 Output Total 8125 850 Balance -2095 -709 Weight 94.035 kg Intake & Output: Intake & Output 09/21/18 09/22/18 09/22/18 21:59 05:59 13:59 Intake Total 200 Output Total 3575 850 Balance -3455 -798 Weight 94.035 kg Intake: Oral 200 Output: Void Amount 4754 [id number] Other: Meal Nourishment/Supplement Percent of Meal Consumed 100% Feeding Ability Assist with Tray Set Up Nourishment/Supplement name sandwich Urine Appearance Clear Clear Urine Color Pale Light Mona Urine Odor Normal Exam: General: Alert, Awake, No acute Distress Eyes/N/T: EOMI, Head/Neck: neck supple, CV: RRR, No murmurs, Pulm: Clear b/l, no wheezing/rhonchi/rales Abd: soft, distended, nontender, +BS x4 Ext: no clubbing/cyanosis, 2+ b/l LE edema Neuro: Alert, no focal deficits, moves all extremities, Skin: warm/dry Medical - PN: Obj Da - Labs CBC & Chem 7: 09/22/18 04:05 09/22/18 04:05 Labs: Abnormal Lab Results 09/22/18 09/22/18 09/21/18 04:05 04:05 22:15 WBC 4.0 L RBC 3.27 L Hgb 11.9 L Hct 35.3 L MCV 108.0 H MCH 36.4 H RDW 15.7 H Plt Count 73 L Lymph # (Auto) 0.9 L PT INR Glucose 123 H Calcium 8.5 L Total Bilirubin 5.4 H Direct Bilirubin 1.4 H AST 52 H Alkaline Phosphatase 131 H Ammonia NT-Pro-B Natriuret Pep Total Protein 4.8 L Albumin 2.9 L Globulin 1.9 L Vitamin B12 > 2000 H Urine Urobilinogen Hyaline Casts 09/21/18 09/21/18 09/21/18 17:50 16:42 16:25 WBC RBC Hgb Hct MCV MCH RDW Plt Count Lymph # (Auto) PT 19.8 H INR 1.7 H Glucose Calcium Total Bilirubin Direct Bilirubin AST Alkaline Phosphatase Ammonia 63 H NT-Pro-B Natriuret Pep Total Protein Albumin Globulin Vitamin B12 Urine Urobilinogen 4.0 A Hyaline Casts 3 H 09/21/18 09/21/18 16:25 16:25 WBC RBC 3.69 L Hgb Hct 39.4 L MCV 106.7 H MCH 36.7 H RDW 15.8 H Plt Count 85 L Lymph # (Auto) 0.8 L PT INR Glucose 163 H Calcium 8.2 L Total Bilirubin 6.1 H Direct Bilirubin AST 53 H Alkaline Phosphatase 161 H Ammonia NT-Pro-B Natriuret Pep 151.6 H Total Protein 5.1 L Albumin 3.1 L Globulin 2.0 L Vitamin B12 Urine Urobilinogen Hyaline Casts Meds: Medications Acetaminophen (Tylenol) 650 mg PO Q6HP PRN PRN Reason: PAIN/FEVER > 101 Hydrocodone Bitart/Acetaminophen ([place] 10/325mg) 1 tab PO QID [facility] Last Admin: 09/21/18 23:20 Dose: Not Given Documented by: Albuterol/Ipratropium (Duoneb) 3 ml NEB Q4HP PRN PRN Reason: Shortness Of Breath Bupropion HCl (Wellbutrin Xl) 100 mg PO DAILY [facility] Cyclobenzaprine HCl (Flexeril) 10 mg PO TIDP PRN PRN Reason: Muscle Spasm Enoxaparin Sodium (Lovenox) 40 mg SQ DAILY [facility] Famotidine (Pepcid) 20 mg PO BID [facility] Last Admin: 09/21/18 23:20 Dose: Not Given Documented by: Folic Acid (Folic Acid) 1 mg PO DAILY [facility] Last Admin: 09/21/18 23:19 Dose: 1 mg Documented by: Furosemide (Lasix) 40 mg IV DAILY [facility] Gabapentin (Neurontin) 300 mg PO BID [facility] Last Admin: 09/21/18 23:20 Dose: Not Given Documented by: Potassium Chloride 40 meq/ (Dextrose) 520 mls @ 130 mls/hr IV UD PRN PRN Reason: Potassium < 3 Magnesium Sulfate (Magnesium Sulfate) 2 gm in 50 mls @ 50 mls/hr IV UD PRN PRN Reason: Magnesium </= 1.6 Lactulose (Cephulac) 10 gm PO DAILYP PRN PRN Reason: Constipation Lactulose (Cephulac) 60 gm PO BID [facility] Last Admin: 09/21/18 23:20 Dose: Not Given Documented by: Lisinopril (Zestril) 40 mg PO DAILY [facility] Lorazepam (Ativan) 1 mg PO TIDP PRN PRN Reason: Anxiety Metoclopramide HCl (Reglan) 10 mg IV Q6HP PRN PRN Reason: Nausea And Vomiting Non-Formulary Medication (Fentanyl [Fentanyl]) 50 mg TD Q48H [facility] Last Admin: 09/21/18 23:20 Dose: Not Given Documented by: Ondansetron HCl (Zofran) 4 mg IV Q4HP PRN PRN Reason: Nausea And Vomiting Potassium Chloride (Kdur) 40 meq PO UD PRN PRN Reason: Potassium is 3-3.5 Potassium Chloride (Kdur) 40 meq PO UD PRN PRN Reason: Potassium < 3 Sodium Chloride (Saline Flush) 10 ml IV Q8 [facility] Last Admin: 09/22/18 06:07 Dose: 10 ml Documented by: Spironolactone (Aldactone) 100 mg PO DAILY [facility] Thiamine HCl (Vitamin B1) 100 mg PO DAILY [facility] Last Admin: 09/21/18 23:21 Dose: 100 mg Documented by: Medical - PN: A/P - Time Spent With Patient Total time spent is greater than 50% in coordination of care (as documented) at patient's floor/unit and/or counseling patient: - Narrative A/P Narrative: A: *Decompensated cirrhosis with ascites and peripheral edema: -with sequelae of hypoalbuminemia, thrombocytopenia, coagulopathy, hyperbilirubinemia -MELD=19 (6% 3-mo mortality) -Not enough ascites to drain per imaging at this time *Dyspnea on exertion over the past month: Stable at this time -pleural effusions likely contributor *Alcoholic cirrhosis: Recently diagnosed *Alcohol abuse: Has cut back significantly and has not had any since last admission *HTN: On amlodipine and lisinopril *GERD: On PPI *Chronic low back pain: Secondary to work injury years ago, on fentanyl Flexeril and [place] *Right second distal phalanx fracture: *Macrocytosis: Likely secondary to alcohol abuse P: -start lasix/aldactone 40:100, but will start with IV initially -continue lactulose and rifaximin -Change PPI to H2 kecia, stop Norvasc given side effect of edema, decreased bupropion for hepatic impairment -Echo pending -thoracentesis -Follow-up with Dr. Strickland outpatient -ppx: [facility] Medical - PN: Qual - VTE Deep Vein Thrombosis/Pulmonary Embolism Present on Admission: No
--- NOTE | 2018-09-22 08:58 | Ultrasound Report ---
CLINICAL INFORMATION: Pleural effusions TECHNIQUE: Routine johnston scale imaging of the pleural spaces bilaterally COMPARISON: Chest x-ray dated 09/21/2018 FINDINGS: There are bilateral pleural effusions, right greater than left. These are considered small to moderate. No septations or sonographic evidence for loculation. No detectable debris. Appearance is most consistent with simple effusions. IMPRESSION: Bilateral pleural effusions, right greater than left Interpreted and Authenticated by: Jimi Marte 09/22/18
[2018-09-22] MEDS ORDERED: FUROSEMIDE 40 MG/4 ML VIAL IV SCH (09:00)
[2018-09-22] MEDS ORDERED: ENOXAPARIN 40 MG/0.4 ML SYRINGE SQ SCH (09:00)
[2018-09-22] MEDS: LACTULOSE 20 GM/30 ML ORAL.SOL PO SCH ×2 (09:10→20:53)
[2018-09-22] MEDS: GABAPENTIN 300 MG CAPSULE PO SCH ×2 (09:11→20:52)
[2018-09-22] MEDS: LISINOPRIL 20 MG TABLET PO SCH (09:11)
[2018-09-22] MEDS: LORazepam 1 MG TABLET PO PRN (09:11)
[2018-09-22] MEDS: THIAMINE 100 MG TABLET PO SCH (09:11)
[2018-09-22] MEDS: FOLIC ACID 1 MG TABLET PO SCH (09:11)
[2018-09-22] MEDS: SPIRONOLACTONE 25 MG TABLET PO SCH (09:12)
[2018-09-22] MEDS: RIFAXIMIN 550 MG TABLET PO SCH ×2 (09:12→20:52)
[2018-09-22] MEDS: FAMOTIDINE 20 MG TABLET PO SCH ×2 (09:12→20:52)
[2018-09-22] MEDS: HYDROcodone/APAP 10/325MG TABLET PO SCH (09:22)
[2018-09-22] MEDS ORDERED: fentaNYL 50 MCG PATCH TOPICAL SCH (10:00)
--- NOTE | 2018-09-22 11:08 | XRay Report ---
INDICATION: Status post right thoracentesis TECHNIQUE: AP chest x-ray,portable upright COMPARISON: Prethoracentesis chest x-ray dated 09/21/2018 FINDINGS:Status post removal of 1100 mL dark-colored right pleural fluid. Decreased right pleural effusion as compared with preprocedure examination. There is no pneumothorax. No acute abnormality. There is persistent left pleural effusion and left basilar volume loss or pneumonia. IMPRESSION: 1. Status post removal of 1100 mL right pleural fluid 2. No post thoracentesis pneumothorax Interpreted and Authenticated by: Jimi Marte 09/22/18
--- NOTE | 2018-09-22 11:51 | Ultrasound Report ---
CLINICAL INFORMATION: Bilateral pleural effusions TECHNIQUE: Informed consent was obtained. We discussed the procedure as well as its potential risks and complications including risk of pneumothorax and infection. Patient understood and consented. Right pleural effusion was localized with ultrasound. Routine ChloraPrep skin cleansing. 1% lidocaine injected subcutaneously and deep. A 6 [place] safe t centesis set was utilized. 1100 mL of dark-colored fluid was removed. No immediate complications. COMPARISON: Chest x-ray dated 08/21/2018 IMPRESSION: 1. Ultrasound-guided right thoracentesis 2. 1100 mL of dark pleural fluid removed Interpreted and Authenticated by: Jimi Marte 09/22/18
[2018-09-22 12:20] LABS: Glucose,Pleural Fluid 120 mg/dL; LDH,Pleural Fluid 91 U/L
[2018-09-22 12:50] LABS: Appearance,Pleural Fluid CLOUDY; Color,Pleural Fluid RED; Nucleated Cells,Pleural Fld 838 /cumm; RBC,Pleural Fluid < 50000 /cumm
[2018-09-22 13:52] LABS: Lymphocytes,Pleural Fluid 13 %; Macrophages,Pleural Fluid 39 %; Mesothelial,Pleural Fluid 32 %; Monocytes,Pleural Fluid 14 %; Neutrophils,Pleural Fluid 2 %
[2018-09-22] MEDS: HYDROcodone/APAP 10/325MG TABLET PO PRN (21:22)
[2018-09-23] MEDS: 0.9 % SODIUM CHLORIDE 10 ML SYRINGE IV SCH (04:57)
--- NOTE | 2018-09-23 07:04 | Discharge Summary ---
Medical - DS: Prov Patient information: Note initiated : 09/23/18 at 7:01 am Service Date, if different from initiated Date: [] Patient: Thien Pacheco 63 y/o M admitted on 09/21/18 for increase edema, abd girth, increase sob with exert. Chief Complaint: [] Date of admission: 09/21/18 21:55 Discharge date: 09/23/18 Primary care physician: Cindy Hester Consults: 09/21/18 Consult to Physician [CONS] Stat Comment: Consulting Provider: Epifanio Singh Reason For Exam: Physician to Consult 09/21/18 22:08 Consult to Physician [CONS] Routine Comment: Consulting Provider: Bryce Strickland Reason For Exam: Physician to Consult Medical - DS: Meds - Discharge Medications Prescriptions: buPROPion [Wellbutrin Xl] 150 mg PO Q48H #2 tab.xl.24h Famotidine [Pepcid] 20 mg PO DAILY #30 tab Furosemide [Lasix] 40 mg PO DAILY #30 tab Spironolactone [Aldactone] 100 mg PO DAILY #30 tab Active and Home Medications: Home Medications Cyclobenzaprine [Flexeril] 10 mg PO TIDP PRN 04/05/18 [History Confirmed 09/21/18 Last Taken 08/20/18] Gabapentin [Neurontin] 300 mg PO BID 04/05/18 [History Confirmed 09/21/18 Last Taken 09/21/18 08:00] HYDROcodone/APAP 10/325MG [[place] 10-325Mg] 1 tab PO QID 04/05/18 [History Confirmed 09/21/18 Last Taken 09/20/18 21:00] LORazepam [Ativan] 1 mg PO TIDP PRN 04/05/18 [History Confirmed 09/21/18 Last Taken 09/21/18 08:00] Lisinopril [Zestril] 40 mg PO DAILY 04/05/18 [History Confirmed 09/21/18 Last Taken 09/21/18 08:00] Omeprazole [Prilosec] 20 mg PO ACB 04/05/18 [History Confirmed 09/21/18 Last Taken 09/21/18 08:00] amLODIPine [Norvasc] 5 mg PO DAILY 04/05/18 [History Confirmed 09/21/18 Last Taken Unknown] buPROPion HCL [Bupropion Xl] 150 mg PO DAILY 04/05/18 [History Confirmed 09/21/18 Last Taken 08/23/18 12:00] fentaNYL [Fentanyl] 50 mg TD Q48H 04/05/18 [History Confirmed 09/21/18 Last Taken 09/20/18 08:00] Rifaximin [Xifaxan] 550 mg PO BID #60 tab 08/26/18 [Rx Confirmed 09/21/18 Last Taken 09/21/18 08:00] Lactulose [Cephulac] 60 gm PO BID 09/21/18 [History Confirmed 09/21/18 Last Taken 09/21/18 08:00] Spironolactone [Aldactone] 25 mg PO DAILY 09/21/18 [History Confirmed 09/21/18 Last Taken 09/21/18 18:00] Home Medications Cyclobenzaprine [Flexeril] 10 mg PO TIDP PRN 04/05/18 [History Confirmed 09/21/18 Last Taken 08/20/18] Gabapentin [Neurontin] 300 mg PO BID 04/05/18 [History Confirmed 09/21/18 Last Taken 09/21/18 08:00] HYDROcodone/APAP 10/325MG [[place] 10-325Mg] 1 tab PO QID 04/05/18 [History Confirmed 09/21/18 Last Taken 09/20/18 21:00] LORazepam [Ativan] 1 mg PO TIDP PRN 04/05/18 [History Confirmed 09/21/18 Last Taken 09/21/18 08:00] Lisinopril [Zestril] 40 mg PO DAILY 04/05/18 [History Confirmed 09/21/18 Last Taken 09/21/18 08:00] fentaNYL [Fentanyl] 50 mg TD Q48H 04/05/18 [History Confirmed 09/21/18 Last Taken 09/20/18 08:00] Rifaximin [Xifaxan] 550 mg PO BID #60 tab 08/26/18 [Rx Confirmed 09/21/18 Last Taken 09/21/18 08:00] Lactulose [Cephulac] 60 gm PO BID 09/21/18 [History Confirmed 09/21/18 Last Taken 09/21/18 08:00] Famotidine [Pepcid] 20 mg PO DAILY #30 tab 09/23/18 [Rx Last Taken Unknown] Furosemide [Lasix] 40 mg PO DAILY #30 tab 09/23/18 [Rx Last Taken Unknown] Spironolactone [Aldactone] 100 mg PO DAILY #30 tab 09/23/18 [Rx Last Taken Unknown] buPROPion [Wellbutrin Xl] 150 mg PO Q48H #2 tab.xl.24h 09/23/18 [Rx Last Taken Unknown] Medical - DS: Hosp Hospital course: Mr. Pacheco is a 63 year old M with increased edema in his legs and abdomen. He was diagnosed with cirrhosis alcohol related and july and admitted at that time for hepatic encephalopathy. He was started on lactulose and rifaximin and Aldactone. He follows with Dr. More outpatient we discussed EGD and colonoscopy. Patient used to be a heavy drinker for years he was a daily drinker until about 6 months ago, he says his daily alcohol was typically several shots of tequila and 3-4 beers. Since then he is cut back quite a bit. And has not had anything to drink since his last hospitalization. Who presents the ED this time because of increased swelling in his legs and abdomen. He did not have swelling last time. He denies any confusion like he had last admission. He is been taking his lactulose. He was started on Aldactone 25 mg daily, I do not see Lasix. Takes chronic pain meds. No other new medication changes. In the ED he is a chest x-ray which does show some pulmonary congestion. Bilirubin similar to last admission is also noted to have plan is low and other numbers are similar to last admission. He does state that he has had increased dyspnea on exertion over the past month, no new increase in the past few days, states that is stable. 09/22 Able to sleep all right last night. No new complaints. No overnight events. Refused physical therapy this morning. Had a thoracentesis of 1100 cc of transudative fluid 09/23 Feeling better and breathing better since thoracentesis. Swelling in his legs is improved. Patient stable for discharge. Instructed him regarding the change in Wellbutrin from daily to every 48 in light of his liver disease. Changed his proton pump inhibitor to absent. Stopped his Norvasc given the adverse effect of edema. Started him on Lasix Aldactone A: *Decompensated cirrhosis with ascites and peripheral edema: -with sequelae of hypoalbuminemia, thrombocytopenia, coagulopathy, hyperbilirubinemia -MELD=19 (6% 3-mo mortality) -Not enough ascites to drain per imaging at this time *Dyspnea on exertion over the past month: Stable at this time -pleural effusions likely contributor -thoracentesis of 1100cc transudate *Alcoholic cirrhosis: Recently diagnosed *Alcohol abuse: Has cut back significantly and has not had any since last admission *HTN: On amlodipine and lisinopril *GERD: On PPI *Chronic low back pain: Secondary to work injury years ago, on fentanyl Flexeril and [place] *Right second distal phalanx fracture: *Macrocytosis: 2/2 chronic etoh P: -start lasix/aldactone 40:100, but will start with IV initially -continue lactulose and rifaximin -Change PPI to H2 kecia, stop Norvasc given side effect of edema, decreased bupropion for hepatic impairment -Echo pending -Follow-up with Dr. Strickland outpatient -ppx: lovenox Discharge diagnosis: Alcoholic cirrhosis dyspnea alcohol abuse hypertension GERD chronic pain Secondary discharge diagnosis: Right second distal phalanx fracture chronic low back pain GERD - Time Spent with Patient Total time spent providing and/or coordinating discharge services: Greater than 30 minutes Medical - DS: Exam - Constitutional Vitals: Vital Signs Temp Pulse Resp BP Pulse Ox 09/23/18 04:05 97.8 F 74 12 114/69 94 09/22/18 23:08 97.9 F 69 12 109/68 95 09/22/18 19:16 98.1 F 73 12 103/63 95 09/22/18 16:00 98.4 F 75 18 114/63 94 09/22/18 12:00 98.3 F 70 18 110/63 94 09/22/18 08:15 70 16 94 09/22/18 08:00 98.6 F 69 16 108/68 94 Intake and Output 09/22/18 09/23/18 09/23/18 21:59 05:59 13:59 Intake Total 960 350 Output Total 600 175 Balance 360 175 Intake: Oral 960 350 Output: Void Amount 600 175 Other: Meal Dinner Percent of Meal Consumed 100% Feeding Ability Independent Urine Appearance Clear Urine Color Straw Dark Yellow Urine Odor Normal Normal Stool Size Moderate Stool Color Brown Stool Consistency Liquid Loose # Bowel Movements 1 Weight 95.708 kg Medical - DS: Data Labs on day of discharge: Labs from last 24 hours 09/22/18 09/22/18 09/22/18 11:01 11:01 11:00 Fluid pH 7.52 Fluid Total Protein TNP Pleural Fluid Source Pleural Pleural Color Red Pleural Appearance Cloudy Pleural RBC < [address] 100 Pleural Nuc Cells 838 Pleural Neutrophils 2 Pleural Lymphocytes 13 Pleural Monocytes 14 Pleural Plasma Cells Not Reportable Pleural Macrophages 39 Pleural Mesothelial 32 Pleural Diff Comment Pleural Total Protein 1.7 Pleural LDH 91 Pleural Glucose 120 Pleural Amylase 15 Medical - DS: A/P - Patient/Caregiver Discharge Instructions Activity: increase activity as tolerated Diet: Regular Diet Prescriptions: buPROPion [Wellbutrin Xl] 150 mg PO Q48H #2 tab.xl.24h Famotidine [Pepcid] 20 mg PO DAILY #30 tab Furosemide [Lasix] 40 mg PO DAILY #30 tab Spironolactone [Aldactone] 100 mg PO DAILY #30 tab - Follow up Plan Follow up with: Cindy Hester MD [Primary Care Provider] - Bryce Strickland MD [Physician] - Disposition: Home, Self-Care Prognosis: Serious Rehab Potential: Fair Overall status at discharge: patient is back to baseline Medical - DS: Qual - VTE Deep Vein Thrombosis/Pulmonary Embolism Present on Admission: No
[2018-09-23] MEDS ORDERED: HYDROCORTISONE CRM 1% TUBE 30GM TOPICAL PRN (08:41)
[2018-09-23] MEDS ORDERED: buPROPion 150 MG TAB.XL.24H PO SCH (09:00)
[2018-09-23] MEDS ORDERED: FUROSEMIDE 40 MG TABLET PO SCH (09:00)
[2018-09-23] MEDS ORDERED: ENOXAPARIN 40 MG/0.4 ML SYRINGE SQ SCH (09:00)
[2018-09-23] MEDS: LACTULOSE 20 GM/30 ML ORAL.SOL PO SCH (10:23)
[2018-09-23] MEDS: HYDROcodone/APAP 10/325MG TABLET PO PRN (10:25)
[2018-09-23] MEDS: THIAMINE 100 MG TABLET PO SCH (10:25)
[2018-09-23] MEDS: GABAPENTIN 300 MG CAPSULE PO SCH (10:25)
[2018-09-23] MEDS: RIFAXIMIN 550 MG TABLET PO SCH (10:25)
[2018-09-23] MEDS: LORazepam 1 MG TABLET PO PRN (10:25)
[2018-09-23] MEDS: FOLIC ACID 1 MG TABLET PO SCH (10:25)
[2018-09-23] MEDS: FAMOTIDINE 20 MG TABLET PO SCH (10:26)
[2018-09-23] MEDS: SPIRONOLACTONE 25 MG TABLET PO SCH (10:27)
[2018-09-23] MEDS: LISINOPRIL 20 MG TABLET PO SCH (10:27)
--- NOTE | 2018-09-24 11:19 | Non-GYN Cytology Report ---
NON FLOOR AND WALL APPLIER LIQUID SPECIMEN NG DX CATEGORY Negative MICROSCOPIC DIAGNOSIS RIGHT PLEURAL FLUID, THORACENTESIS: -- REACTIVE MESOTHELIAL CELLS WITH MIXED ACUTE AND CHRONIC INFLAMMATION. -- NO ATYPICAL OR MALIGNANT CELLS IDENTIFIED, SEE COMMENT. (EBD:[email or web address]) COMMENT: The patient's recent clinical history is noted. No atypical or malignant cells are identified in the pleural effusion. Clinical and radiographic correlation is required. MICROSCOPIC DESCRIPTION Cytologic preparations of the right pleural fluid show mesothelial cells with reactive features in a background of mixed acute (neutrophilic) and chronic (lymphohistiocytic) inflammation. No atypical or malignant cells are identified. (EBD:[email or web address]) CLINICAL HISTORY Right pleural effusion. EXTERNAL COMMENT ~1200 mL red fluid: 1 thinprep, 1 H/E, 1 Diff Quik, 1 [place] Giemsa, 1 cell block Electronically Signed by: Janene Lizama M.D.
== END 2018-09-23 12:45 | disposition home or self-care (01) ==
LOC: ED 16:04 → MEDSUR 21:55 → INTOOBSV 21:55
PROVIDERS: ADMIT Internal Medicine; ATTEND Internal Medicine

== ENCOUNTER 2018-11-26 21:31 | Inpatient (IN) ==
[2018-11-26] MEDS ORDERED: 0.9 % SODIUM CHLORIDE 1,000 ML IV ONE (22:08)
--- NOTE | 2018-11-26 22:14 | Emergency Department Note ---
General Adult HPI - General Chief complaint: Weakness Stated complaint: weakness Time Seen by Provider: 11/26/18 21:59 Source: EMS Mode of arrival: ambulatory - History of Present Illness HPI Narrative: This patient has a history of cirrhosis and his brought him in because she was worried about him but she disappeared and the patient does not otherwise know why he is here and does not have much of any complaints. - Related Data Home Medications Medication Instructions Recorded Confirmed Cyclobenzaprine [Flexeril] 10 mg PO TIDP PRN 04/05/18 11/19/18 Gabapentin [Neurontin] 300 mg PO BID 04/05/18 11/19/18 fentaNYL [Fentanyl] 50 mcg TD Q48H 04/05/18 11/19/18 Previous Rx's Medication Instructions Recorded Famotidine [Pepcid] 20 mg PO DAILY #30 tab 09/23/18 Furosemide [Lasix] 40 mg PO DAILY #30 tab 09/23/18 buPROPion [Wellbutrin Xl] 150 mg PO Q48H #2 tab.xl.24h 09/23/18 HYDROcodone/APAP 10/325MG [[place] 1 tab PO BIDP PRN #1 tab 11/20/18 10-325Mg] LORazepam [Ativan] 1 mg PO BIDP PRN #1 tab 11/20/18 Lactulose [Cephulac] 30 gm PO QID #1 oral.marquita 11/20/18 Allergies Allergy/AdvReac Type Severity Reaction Status Date / Time No Known Drug Allergies Allergy Verified 11/17/18 23:55 Review of Systems All systems ED: reviewed and negative except as stated. Past Medical History - Past Medical History Medical history: Reports: hypertension, liver disease, other (cirrhosis. Hepatic encephalopathy.) Psychiatric history: Reports: anxiety - Social History smoking status: Smokeless tobacco Alcohol use: Reports: Occasionally Drug use: Reports: opiates Physical Exam Limitations: no limitations General appearance: alert Head: atraumatic Eye: Present: normal appearance ENT: Present: normal exam Neck: Present: normal inspection Chest: Present: normal inspection Respiratory: Present: normal lung sounds bilaterally Cardiovascular: Present: regular rate, normal rhythm, normal heart sounds Abdominal: Present: soft. Absent: distention, tenderness Neurological: Present: alert Psychiatric: Present: normal affect Skin: Present: warm, dry Course Vital Signs Temperature 97.4 F 11/26/18 21:31 Pulse Rate 82 08/30/19 21:31 Respiratory Rate 18 11/26/18 21:31 Blood Pressure 128/64 11/26/18 21:31 Pulse Oximetry (%) 95 11/26/18 21:31 Temperature 97 F 11/27/18 07:01 Pulse Rate 76 11/27/18 04:46 Respiratory Rate 8 L 11/27/18 07:01 Blood Pressure 120/62 11/27/18 07:01 Pulse Oximetry (%) 98 11/27/18 07:01 Medical Decision Making - MDM Narrative Medical decision making narrative: I discussed this patient with Dr. Jerry and he will be admitted in the hospital for hepatic encephalopathy. - Lab Data Lab results reviewed: Yes I reviewed the patient's lab results. Result diagrams: 11/27/18 04:00 11/27/18 04:00 Lab Results 11/26/18 11/26/18 11/26/18 Range/Units 22:08 22:08 22:08 WBC 8.6 (4.5-11.0) K/mcL RBC 3.42 L (4.50-5.90) M/mcL Hgb 11.9 L (13.5-16.5) g/dL Hct 35.5 L (41.0-55.0) % MCV 104.0 H (80.0-100.0) fL MCH 34.9 H (26.0-34.0) pg MCHC 33.6 (31.0-36.0) g/dL RDW 16.6 H (11.5-14.5) % Plt Count 90 L (140-440) K/mcL MPV 9.9 (7.4-10.4) fL Gran % 69.8 (38.0-78.0) % Lymph % (Auto) 16.2 (15.5-49.0) % [place] % (Auto) 11.4 (1.0-12.0) % Eos % (Auto) 1.8 (0.0-7.0) % Baso % (Auto) 0.8 (0.0-2.0) % Gran # 5.9 (1.8-8.0) K/mcL Lymph # (Auto) 1.4 L (1.5-4.8) K/mcL [place] # (Auto) 1.0 H (0.1-0.9) K/mcL Eos # (Auto) 0.2 (0.0-0.7) K/mcL Baso # (Auto) 0.1 (0.0-0.3) K/mcL PT 17.9 H (11.9-14.5) sec INR 1.5 H (0.9-1.1) Sodium 136 (133-145) mmol/L Potassium 6.1 H* (3.3-5.1) mmol/L Chloride 103 (96-108) mmol/L Carbon Dioxide 21 L (22-30) mmol/L Anion Gap 12.0 (8-16) BUN 29 H (8-23) mg/dl Creatinine 1.4 H (0.7-1.2) mg/dl GFR Calculation 53 Glucose 114 H (70-105) mg/dL Calcium 9.3 (8.6-10.4) mg/dl Total Bilirubin 4.9 H (0.0-1.0) mg/dL AST 71 H (0-37) U/l ALT 53 H (0-40) U/l Alkaline Phosphatase 197 H (39-117) U/L Ammonia (16-60) umol/L Total Protein 6.2 (5.9-8.4) gm/dL Albumin 3.6 (3.2-5.2) gm/dL Globulin 2.6 (2.2-3.7) gm/dL Albumin/Globulin Ratio 1.4 (1.0-2.3) 11/26/18 Range/Units 22:13 WBC (4.5-11.0) K/mcL RBC (4.50-5.90) M/mcL Hgb (13.5-16.5) g/dL Hct (41.0-55.0) % MCV (80.0-100.0) fL MCH (26.0-34.0) pg MCHC (31.0-36.0) g/dL RDW (11.5-14.5) % Plt Count (140-440) K/mcL MPV (7.4-10.4) fL Gran % (38.0-78.0) % Lymph % (Auto) (15.5-49.0) % [place] % (Auto) (1.0-12.0) % Eos % (Auto) (0.0-7.0) % Baso % (Auto) (0.0-2.0) % Gran # (1.8-8.0) K/mcL Lymph # (Auto) (1.5-4.8) K/mcL [place] # (Auto) (0.1-0.9) K/mcL Eos # (Auto) (0.0-0.7) K/mcL Baso # (Auto) (0.0-0.3) K/mcL PT (11.9-14.5) sec INR (0.9-1.1) Sodium (133-145) mmol/L Potassium (3.3-5.1) mmol/L Chloride (96-108) mmol/L Carbon Dioxide (22-30) mmol/L Anion Gap (8-16) BUN (8-23) mg/dl Creatinine (0.7-1.2) mg/dl GFR Calculation Glucose (70-105) mg/dL Calcium (8.6-10.4) mg/dl Total Bilirubin (0.0-1.0) mg/dL AST (0-37) U/l ALT (0-40) U/l Alkaline Phosphatase (39-117) U/L Ammonia 129 H (16-60) umol/L Total Protein (5.9-8.4) gm/dL Albumin (3.2-5.2) gm/dL Globulin (2.2-3.7) gm/dL Albumin/Globulin Ratio (1.0-2.3) Disposition Pt seen by CLINICAL REVIEW NURSE/PA only: No Clinical Impression: Hepatic encephalopathy Disposition: Xfer As Inpt ([facility]) Condition: Fair
[2018-11-26 23:01] LABS: Basophils # (Auto) 0.1 K/mcL (0.0-0.3); Basophils % (Auto) 0.8 % (0.0-2.0); Eosinophils # (Auto) 0.2 K/mcL (0.0-0.7); Eosinophils % (Auto) 1.8 % (0.0-7.0); Granulocytes % (Auto) 69.8 % (38.0-78.0); Hematocrit 35.5 % (41.0-55.0); Hemoglobin 11.9 g/dL (13.5-16.5); Lymphocytes # (Auto) 1.4 K/mcL (1.5-4.8); Lymphocytes % (Auto) 16.2 % (15.5-49.0); Mean Corpuscular HGB Conc 33.6 g/dL (31.0-36.0); Mean Platelet Volume 9.9 fL (7.4-10.4); Monocytes % (Auto) 11.4 % (1.0-12.0); Platelet Count 90 K/mcL (140-440); RBC 3.42 M/mcL (4.50-5.90); Red Cell Distribution Width 16.6 % (11.5-14.5); WBC 8.6 K/mcL (4.5-11.0)
[2018-11-26 23:14] LABS: INR 1.5 (0.9-1.1); Prothrombin Time 17.9 sec (11.9-14.5)
[2018-11-26 23:17] LABS: ALT/SGPT 53 U/l (0-40); AST/SGOT 71 U/l (0-37); Albumin 3.6 gm/dL (3.2-5.2); Albumin/Globulin Ratio 1.4 (1.0-2.3); Alkaline Phosphatase 197 U/L (39-117); Bilirubin,Total 4.9 mg/dL (0.0-1.0); Blood Urea Nitrogen 29 mg/dl (8-23); Calcium 9.3 mg/dl (8.6-10.4); Carbon Dioxide 21 mmol/L (22-30); Chloride 103 mmol/L (96-108); Globulin 2.6 gm/dL (2.2-3.7); Glomerular Filtration Rate 53; Glucose 114 mg/dL (70-105)
[2018-11-26] MEDS ORDERED: INSULIN REGULAR, HUMAN 1 UNIT/0.01 ML UNIT IV ONE (23:24)
[2018-11-26] MEDS ORDERED: ALBUTEROL SULFATE 2.5 MG/3 ML NEBULIZER NEB ONE (23:26)
[2018-11-26] MEDS ORDERED: DEXTROSE 50% 50 ML VIAL IV ONE (23:27)
[2018-11-26] MEDS ORDERED: SODIUM POLYSTYRENE SULFONATE 15 GM/60 ML SUSPENSION PO ONE (23:28)
[2018-11-26] MEDS ORDERED: FUROSEMIDE 40 MG/4 ML VIAL IV ONE (23:28)
[2018-11-26] MEDS ORDERED: LACTATED RINGERS 1,000 ML IV ONE (23:32)
[2018-11-26] MEDS ORDERED: DEXTROSE 50% 50 ML SYRINGE IV ONE (23:38)
--- NOTE | 2018-11-26 23:45 | Internal Med History&Physical ---
Medical - H&P: [facility] Patient information: Note initiated : 11/26/18 at 11:45 pm Service Date, if different from initiated Date: [] Patient: Thien Pacheco a 63 y/o M admitted on for weakness. Chief Complaint: [] Chief complaint: Confused and minimally responsive History of present illness: Mr. Pacheco is a 63 year old M with a known history of alcoholic cirrhosis and recurrent episodes hepatic encephalopathy on lactulose who presents to the ER in unresponsive state. Patient is accompanied with his . He was in his baseline state of health until the day prior he became very lethargic confused and was unable to take his scheduled dose of lactulose. He was subsequently brought in near obtunded state. Initial ammonia was over 120. Patient was started on crystalloids her initial work-up revealed elevated creatinine and signs of volume depletion. Was also started on lactulose along with hyperkalemia protocol for potassium of 6.1. Hospitalist service was consulted in light of above At the time of evaluation patient is accompanied with his . He was not able to provide answer the question and occasionally mumbles. No review of system could be performed. He however on initial exam does not have fever, tachycardia or distended abdomen. He does not seem to apparent distress or short of breath. Review of systems 10 point review of systems attempted but could not performed Medical - H&P: PMH Medical history: Past medical history: Alcohol abuse Alcoholic cirrhosis Hypertension GERD Chronic low back pain from work injury years ago Depression/Anxiety Past surgical history: Low back surgery x3 from a work injury years ago Left shoulder surgery Family history: Mother and father were both healthy Social history: Patient quit smoking years ago about 40, uses chewing tobacco Used to drink daily for years including at least several drinks of tequila with 3-4 beers on a daily basis but cut back 6 months ago, denies alcohol since prior to last admission Lives at home with his sarah Gil in [place] Follows up with [facility] - H&P: Meds Home Medications Medication Instructions Recorded Confirmed Type Cyclobenzaprine [Flexeril] 10 mg PO TIDP PRN 04/05/18 11/19/18 History Gabapentin [Neurontin] 300 mg PO BID 04/05/18 11/19/18 History fentaNYL [Fentanyl] 50 mcg TD Q48H 04/05/18 11/19/18 History Famotidine [Pepcid] 20 mg PO DAILY #30 tab 09/23/18 11/19/18 Rx Furosemide [Lasix] 40 mg PO DAILY #30 tab 09/23/18 11/19/18 Rx buPROPion [Wellbutrin Xl] 150 mg PO Q48H #2 tab.xl.24h 09/23/18 11/19/18 Rx HYDROcodone/APAP 10/325MG [[place] 1 tab PO BIDP PRN #1 tab 11/20/18 Rx 10-325Mg] LORazepam [Ativan] 1 mg PO BIDP PRN #1 tab 11/20/18 Rx Lactulose [Cephulac] 30 gm PO QID #1 oral.marquita 11/20/18 Rx Allergies Allergy/AdvReac Type Severity Reaction Status Date / Time No Known Drug Allergies Allergy Verified 11/17/18 23:55 Medical - H&P: Exam - Constitutional Vitals: Temp Pulse Resp BP Pulse Ox 97.4 F 74 18 111/58 94 11/26/18 21:31 11/26/18 22:01 11/26/18 21:31 11/26/18 22:01 11/26/18 22:01 Exam: Very responsive, fatigue lethargic Oral cavity dry Head normocephalic No ear or nose discharge Scleral icterus noted S1 and S2 regular rhythm grade 1 murmur systolic Diminished breath sounds bases bilaterally Abdomen soft nontender, non-distended, no guarding rebound or fluid Lower extremity no cyanosis clubbing or joint swelling Skin mild icterus Psych he is unresponsive state but no agitation Neuro could not be performed GCS 6 Medical - H&P: Reslt - Labs CBC & Chem 7: 11/27/18 04:00 11/27/18 04:00 Labs: Short CBC 11/26/18 Range/Units 22:08 WBC 8.6 (4.5-11.0) K/mcL Hgb 11.9 L (13.5-16.5) g/dL Hct 35.5 L (41.0-55.0) % Plt Count 90 L (140-440) K/mcL BMP 11/26/18 22:08 Sodium 136 Potassium 6.1 H* Chloride 103 Carbon Dioxide 21 L BUN 29 H Creatinine 1.4 H Glucose 114 H Calcium 9.3 Liver Function 11/26/18 Range/Units 22:08 Total Bilirubin 4.9 H (0.0-1.0) mg/dL AST 71 H (0-37) U/l ALT 53 H (0-40) U/l Alkaline Phosphatase 197 H (39-117) U/L Albumin 3.6 (3.2-5.2) gm/dL Medical - H&P: A/P (1) Hepatic encephalopathy Current visit: Yes Status: Acute * Hepatic encephalopathy-with elevated ammonia. Start lactulose/rifaximin. Unclear precipitant however no evidence of fever leukocytosis or GI hemorrhage. Likely precipitated by volume depletion and missing regular doses of lactulose * Hyperkalemia status post hyperkalemia protocol, Kayexalate/Lasix/crystalloids * End-stage liver disease secondary to alcoholic cirrhosis- patient follows up with Dr. More * Anxiety disorder continue bupropion/ benzo * Neuropathy continue gabapentin * Pain management hold narcotics until clinically improves * GERD continue PPI * Full code * Prophylaxis heparin Plan * Continue crystalloid/initiate lactulose/rifaximin * Hyperkalemia protocol * Pre-existing medical condition management as above * Inpatient admission
[2018-11-27] MEDS ORDERED: guaiFENesin/CODEINE 10 ML UDC PO PRN (01:19)
[2018-11-27] MEDS ORDERED: ONDANSETRON 4 MG/2 ML VIAL IV PRN (01:19)
[2018-11-27] MEDS ORDERED: cefTRIAXone 2 GM in DEXTROSE 5% IN WATER 50 ML IV SCH ×2 (01:19→17:00)
[2018-11-27] MEDS ORDERED: cefTRIAXone 1 GM VIAL ONE (02:01)
[2018-11-27 05:50] LABS: Hematocrit 33.8 % (41.0-55.0); Hemoglobin 11.5 g/dL (13.5-16.5); Mean Cell Volume 107.2 fL (80.0-100.0); Mean Platelet Volume 9.1 fL (7.4-10.4); Platelet Count 69 K/mcL (140-440); RBC 3.16 M/mcL (4.50-5.90); Red Cell Distribution Width 18.5 % (11.5-14.5); WBC 7.6 K/mcL (4.5-11.0)
[2018-11-27 06:39] LABS: ALT/SGPT 49 U/l (0-40); AST/SGOT 65 U/l (0-37); Albumin 3.4 gm/dL (3.2-5.2); Albumin/Globulin Ratio 1.4 (1.0-2.3); Alkaline Phosphatase 174 U/L (39-117); Bilirubin,Direct 1.6 mg/dL (0.0-0.3); Bilirubin,Total 4.5 mg/dL (0.0-1.0); Blood Urea Nitrogen 25 mg/dl (8-23); Calcium 8.9 mg/dl (8.6-10.4); Carbon Dioxide 22 mmol/L (22-30); Chloride 102 mmol/L (96-108); Globulin 2.5 gm/dL (2.2-3.7); Glomerular Filtration Rate 64; Glucose 126 mg/dL (70-105); Lactate Dehydrogenase 205 U/L (94-250); Phosphorous 6.1 mg/dL (2.7-4.5); Triglycerides 81 mg/dl (<150); Uric Acid 7.5 mg/dL (2.5-8.0)
[2018-11-27 07:53] LABS: Anisocytosis 1+ (NONE SEEN); Band Neutrophils % 1 % (0-10); Eosinophils % (Manual) 2 % (0-7); Lymphocytes % 14 % (15-49); Macrocytosis 2+ (NONE SEEN); Monocytes % (Manual) 15 % (1-12); Platelet Estimate DECREASED (NORMAL); RBC Morphology ABNORM (NORMAL); Segmented Neutrophils % 68 % (38-78)
[2018-11-27] MEDS: 0.9 % SODIUM CHLORIDE 10 ML SYRINGE IV SCH ×3 (08:30→21:43)
--- NOTE | 2018-11-27 08:37 | XRay Report ---
HISTORY: Weakness FINDINGS: Lungs are clear. The heart is borderline enlarged but magnified by portable technique. There is no congestive heart failure or pleural effusion. There is improved aeration of both lung bases compared with the prior studies done on 09/22/892218. IMPRESSION: borderline cardiomegaly and no acute abnormality Interpreted and Authenticated by: Armando Roberts 11/27/18
[2018-11-27] MEDS: DOCUSATE SODIUM 100 MG CAPSULE PO SCH ×2 (09:33→21:42)
[2018-11-27] MEDS: HEPARIN 5,000 UNIT/ML VIAL SQ SCH ×2 (09:44→21:41)
[2018-11-27] MEDS: LACTULOSE 20 GM/30 ML ORAL.SOL PO SCH ×4 (09:44→21:41)
[2018-11-27] MEDS: FOLIC ACID 1 MG TABLET PO SCH (09:44)
[2018-11-27] MEDS: THIAMINE 100 MG in 0.9 % SODIUM CHLORIDE 50 ML IV SCH (09:44)
[2018-11-27] MEDS: CYANOCOBALAMIN (VITAMIN B-12) 500 MCG TABLET PO SCH ×2 (10:14→21:41)
[2018-11-27] MEDS: MULTIVIT,THER IRON,CA,FA & MIN 1 TABLET PO SCH (10:14)
--- NOTE | 2018-11-27 10:44 | Internal Med Progress Note ---
Medical - PN: Subj Patient information: Note initiated : 11/27/18 at 10:41 am Service Date, if different from initiated Date: [] Patient: Thien Pacheco 63 y/o M admitted on 11/27/18 for weakness. Chief Complaint: [] Interval history: Mr. Pacheco is a 63 year old M with a known history of alcoholic cirrhosis and r ecurrent episodes hepatic encephalopathy on lactulose who presents to the ER in unresponsive state. Patient is accompanied with his . He was in his baseline state of health until the day prior he became very lethargic confused and was unable to take his scheduled dose of lactulose. He was subsequently brought in near obtunded state. Initial ammonia was over 120. Patient was started on crystalloids her initial work-up revealed elevated creatinine and signs of volume depletion. Was also started on lactulose along with hyperkalemia protocol for potassium of 6.1. Hospitalist service was consulted in light of above At the time of evaluation patient is accompanied with his . He was not able to provide answer the question and occasionally mumbles. No review of system could be performed. He however on initial exam does not have fever, tachycardia or distended abdomen. He does not seem to apparent distress or short of breath. 11/27-patient doing better and more awake on lactulose. Continue crystalloids. Potassium down to 5.8. Case discussed with patient and . Anticipate additional 24 to 48 hours of hospitalization with continued lactulose/rifaximin. Patient follows up with outpatient with Dr. Argenis ENNIS. Denies abdominal pain or recent black tarry stools or hematemesis. Denies alcohol use [id number] medication use. - Constitutional Vitals: Vital Signs Temp Pulse Resp BP Pulse Ox 97.3 F 74 12 123/59 96 11/27/18 08:01 11/27/18 08:01 11/27/18 08:01 11/27/18 08:01 11/27/18 08:01 Period Temp Pulse Resp BP Sys/[place] Pulse Ox Last 24 Hr 97 F-97.8 F 72-82 8-18 110-156/52-76 89-100 Intake and Output 11/26/18 11/27/18 11/27/18 21:59 05:59 13:59 Intake Total 2000 Output Total 2200 600 Balance -200 -600 Weight 230 lb 208 lb 1.6 oz Intake & Output: Intake & Output 11/26/18 11/27/18 11/27/18 21:59 05:59 13:59 Intake Total 2000 Output Total 2200 600 Balance -200 -600 Weight 230 lb 208 lb 1.6 oz Intake: IV 2000 Sodium Chloride 0.9% 1,000 ml @ 1000 Wide Open IV BOLUS ONE Rx#: [id number] Lactated Ringers 1,000 ml @ 1000 Wide Open IV BOLUS ONE Rx#: [id number] Output: Void Amount 1200 Urine/Stool Mix 1000 600 Other: Urine Appearance Clear Urine Color Bright Yellow Stool Size Moderate Stool Color Yellow Raheel Colored Stool Consistency Loose General appearance: no acute distress Exam: Resting comfortably Opens eyes to verbal commands and able to answer to questions No telemetry events Nondistended nontender abdomen Breathing comfortably Medical - PN: Obj Da - Labs CBC & Chem 7: 11/27/18 04:00 11/27/18 04:00 Labs: Abnormal Lab Results 11/27/18 11/27/18 11/26/18 04:00 04:00 22:13 RBC 3.16 L Hgb 11.5 L Hct 33.8 L MCV 107.2 H MCH 36.5 H RDW 18.5 H Plt Count 69 L Lymph # (Auto) [place] # (Auto) Lymphocytes % 14 L Monocytes % (Manual) 15 H Platelet Estimate Decreased A RBC Morphology Abnorm A Anisocytosis 1+ A Macrocytosis 2+ A PT INR Potassium 5.8 H Carbon Dioxide BUN 25 H Creatinine Glucose 126 H Phosphorus 6.1 H* Total Bilirubin 4.5 H Direct Bilirubin 1.6 H GGT 70 H AST 65 H ALT 49 H Alkaline Phosphatase 174 H Ammonia 129 H 11/26/18 11/26/18 11/26/18 22:08 22:08 22:08 RBC 3.42 L Hgb 11.9 L Hct 35.5 L MCV 104.0 H MCH 34.9 H RDW 16.6 H Plt Count 90 L Lymph # (Auto) 1.4 L [place] # (Auto) 1.0 H Lymphocytes % Monocytes % (Manual) Platelet Estimate RBC Morphology Anisocytosis Macrocytosis PT 17.9 H INR 1.5 H Potassium 6.1 H* Carbon Dioxide 21 L BUN 29 H Creatinine 1.4 H Glucose 114 H Phosphorus Total Bilirubin 4.9 H Direct Bilirubin GGT AST 71 H ALT 53 H Alkaline Phosphatase 197 H Ammonia Meds: Medications Cyanocobalamin (Vitamin B-12) 1,000 mcg PO BID [facility] Stop: 12/01/18 21:01 Last Admin: 11/27/18 10:14 Dose: 1,000 mcg Documented by: Docusate Sodium (Colace) 100 mg PO BID [facility] Last Admin: 11/27/18 09:33 Dose: Not Given Documented by: Folic Acid (Folic Acid) 1 mg PO DAILY [facility] Last Admin: 11/27/18 09:44 Dose: 1 mg Documented by: Guaifenesin/Codeine Phosphate (Robitussin Ac) 10 ml PO Q4HP PRN PRN Reason: Cough Heparin Sodium (Porcine) (Heparin) 5,000 unit SQ Q12 [facility] Last Admin: 11/27/18 09:44 Dose: 5,000 unit Documented by: Thiamine HCl 100 mg/ Sodium (Chloride) 51 mls @ 50 mls/hr IV DAILY [facility] Stop: 11/29/18 10:02 Last Admin: 11/27/18 09:44 Dose: 50 mls/hr Documented by: Iron Carb/Multivit/Yard Loader Operator/Folic Acid (Multivitamin W/Minerals) 1 tab PO DAILY [facility] Last Admin: 11/27/18 10:14 Dose: 1 tab Documented by: Lactulose (Cephulac) 30 gm PO QID [facility] Last Admin: 11/27/18 09:44 Dose: 30 gm Documented by: Ondansetron HCl (Zofran) 4 mg IV Q4-6HP PRN PRN Reason: Nausea And Vomiting Senna/Docusate Sodium (Senna Plus Tablet) 1 tab PO [facility] Sodium Chloride (Saline Flush) 10 ml IV Q8 [facility] Last Admin: 11/27/18 08:30 Dose: 10 ml Documented by: Medical - PN: A/P - Time Spent With Patient Total time spent is greater than 50% in coordination of care (as documented) at patient's floor/unit and/or counseling patient: 25 - 35 minutes (1) Hepatic encephalopathy Status: Acute Assessment and plan: * Hepatic encephalopathy-clinically improving with lactulose/rifaximin. Likely precipitated by volume depletion and missing regular doses of lactulose * Hyperkalemia status post hyperkalemia protocol, Kayexalate/Lasix/crystalloids. * End-stage liver disease secondary to alcoholic cirrhosis- patient follows up with Dr. More * Anxiety disorder continue bupropion/ benzo * Neuropathy continue gabapentin * Pain management hold narcotics until clinically improves * GERD continue PPI * Full code * Prophylaxis heparin Plan * Continue crystalloid/initiate lactulose/rifaximin * Nutrition support/PT OT * Pre-existing medical condition management as above Current Visit: Yes Medical - PN: Qual - VTE Deep Vein Thrombosis/Pulmonary Embolism Present on Admission: No
[2018-11-27] MEDS: RIFAXIMIN 550 MG TABLET PO SCH ×2 (11:57→21:41)
[2018-11-27] MEDS: SENNOSIDES/DOCUSATE SODIUM 1 TAB TABLET PO SCH (21:42)
[2018-11-28] MEDS: 0.9 % SODIUM CHLORIDE 10 ML SYRINGE IV SCH ×3 (05:51→21:00)
[2018-11-28 06:12] LABS: Hematocrit 31.7 % (41.0-55.0); Hemoglobin 10.9 g/dL (13.5-16.5); Mean Cell Volume 106.5 fL (80.0-100.0); Mean Corpuscular HGB Conc 34.4 g/dL (31.0-36.0); Mean Platelet Volume 8.8 fL (7.4-10.4); Platelet Count 46 K/mcL (140-440); RBC 2.98 M/mcL (4.50-5.90); Red Cell Distribution Width 17.7 % (11.5-14.5); WBC 4.8 K/mcL (4.5-11.0)
[2018-11-28 06:37] LABS: ALT/SGPT 44 U/l (0-40); AST/SGOT 57 U/l (0-37); Albumin 3.3 gm/dL (3.2-5.2); Albumin/Globulin Ratio 1.4 (1.0-2.3); Alkaline Phosphatase 153 U/L (39-117); Anisocytosis 1+ (NONE SEEN); Band Neutrophils % 5 % (0-10); Basophils % (Manual) 1 % (0-2); Bilirubin,Direct 1.6 mg/dL (0.0-0.3); Bilirubin,Total 4.9 mg/dL (0.0-1.0); Blood Urea Nitrogen 22 mg/dl (8-23); Calcium 8.9 mg/dl (8.6-10.4); Carbon Dioxide 25 mmol/L (22-30); Chloride 104 mmol/L (96-108); Globulin 2.3 gm/dL (2.2-3.7); Glomerular Filtration Rate 95; Glucose 101 mg/dL (70-105); Lactate Dehydrogenase 182 U/L (94-250); Lymphocytes % 23 % (15-49); Macrocytosis 2+ (NONE SEEN); Monocytes % (Manual) 11 % (1-12); Phosphorous 3.5 mg/dL (2.7-4.5); Platelet Estimate MK DECR (NORMAL); RBC Morphology ABNORM (NORMAL); Segmented Neutrophils % 60 % (38-78); Triglycerides 59 mg/dl (<150); Uric Acid 6.6 mg/dL (2.5-8.0)
[2018-11-28] MEDS: LACTULOSE 20 GM/30 ML ORAL.SOL PO SCH ×4 (08:40→20:58)
[2018-11-28] MEDS: CYANOCOBALAMIN (VITAMIN B-12) 500 MCG TABLET PO SCH ×2 (08:41→20:55)
[2018-11-28] MEDS: DOCUSATE SODIUM 100 MG CAPSULE PO SCH ×2 (08:41→20:56)
[2018-11-28] MEDS: HEPARIN 5,000 UNIT/ML VIAL SQ SCH ×2 (08:41→20:56)
[2018-11-28] MEDS: FOLIC ACID 1 MG TABLET PO SCH (08:41)
[2018-11-28] MEDS: MULTIVIT,THER IRON,CA,FA & MIN 1 TABLET PO SCH (08:41)
[2018-11-28] MEDS: RIFAXIMIN 550 MG TABLET PO SCH ×2 (08:41→20:54)
[2018-11-28] MEDS: THIAMINE 100 MG in 0.9 % SODIUM CHLORIDE 50 ML IV SCH (09:40)
[2018-11-28] MEDS ORDERED: fentaNYL 50 MCG PATCH TOPICAL SCH (10:00)
[2018-11-28] MEDS: buPROPion 150 MG TAB.XL.24H PO SCH (13:55)
[2018-11-28] MEDS: LORazepam 1 MG TABLET PO PRN ×2 (13:55→20:54)
[2018-11-28] MEDS: HYDROcodone/APAP 10/325MG TABLET PO PRN ×2 (15:03→20:54)
[2018-11-28] MEDS ORDERED: LORazepam 2 MG/ML VIAL IV ONE (15:23)
--- NOTE | 2018-11-28 19:18 | Internal Med Progress Note ---
Medical - PN: Subj Patient information: Note initiated : 11/28/18 at 7:16 pm Service Date, if different from initiated Date: [] Patient: Thien Pacheco 63 y/o M admitted on 11/27/18 for weakness. Chief Complaint: Follow-up encephalopathy Interval history: Mr. Pacheco is a 63 year old M with a known history of alcoholic cirrhosis and recurrent episodes hepatic encephalopathy on lactulose who presents to the ER in unresponsive state. Patient is accompanied with his . He was in his baseline state of health until the day prior he became very lethargic confused and was unable to take his scheduled dose of lactulose. He was subsequently brought in near obtunded state. Initial ammonia was over 120. Patient was started on crystalloids her initial work-up revealed elevated creatinine and signs of volume depletion. Was also started on lactulose along with hyperkalemia protocol for potassium of 6.1. Hospitalist service was consulted in light of above At the time of evaluation patient is accompanied with his . He was not able to provide answer the question and occasionally mumbles. No review of system could be performed. He however on initial exam does not have fever, tachycardia or distended abdomen. He does not seem to apparent distress or short of breath. 11/27-patient doing better and more awake on lactulose. Continue crystalloids. Potassium down to 5.8. Case discussed with patient and . Anticipate additional 24 to 48 hours of hospitalization with continued lactulose/rifaximin. Patient follows up with outpatient with Dr. Argenis ENNIS. Denies abdominal pain or recent black tarry stools or hematemesis. Denies alcohol use [id number] medication use. 11/28-patient becoming very anxious, exhibiting symptoms of opioid withdrawal. Fentanyl and hydrocodone have been withheld due to encephalopathy at time of admission. Improved after reordering of fentanyl patch and administration of morphine. Otherwise mentation appears clear, awake, alert, appetite is pretty g ood. Approaching his baseline. No abdominal pain, no nausea or vomiting. Potassium continues to improve, spironolactone continues to be held. Platelets 46,000 this morning, heparin held, though in a similar range to his historic thrombocytopenia levels. - Constitutional Vitals: Vital Signs Temp Pulse Resp BP Pulse Ox 98.5 F 95 H 15 136/77 96 11/28/18 12:00 11/28/18 12:00 11/28/18 12:00 11/28/18 12:00 11/28/18 12:00 Period Temp Pulse Resp BP Sys/[place] Pulse Ox Last 24 Hr 97.9 F-98.9 F 77-95 14-18 125-145/63-77 95-98 Intake and Output 11/28/18 11/28/18 11/28/18 05:59 13:59 21:59 Intake Total 291 360 Output Total 350 Balance -350 291 360 Weight 201 lb 14.4 oz Patient Weight 11/29/18 05:59 Weight 201 lb 14.4 oz Intake & Output: Intake & Output 11/28/18 11/28/18 11/28/18 05:59 13:59 21:59 Intake Total 291 360 Output Total 350 Balance -350 291 360 Weight 201 lb 14.4 oz Intake: IV 51 Vitamin B1 100 mg In Sodium 51 Chloride 0.9% 50 ml @ 50 mls/hr IV DAILY [facility] Rx#:[id number] Oral 240 360 Output: # of times incontinent of urine 350 Other: Meal Breakfast Lunch Percent of Meal Consumed Refused 75% Feeding Ability Independent # Voids 1 1 # Bowel Movements 1 Exam: General: On the bed, standing up, appears difficult to try to get comfortable. Chest: Clear, unlabored Cardiovascular: Regular, no edema Abdomen: Soft, nontender Neuro: Alert, oriented to person, place, situation, moves all extremities equally Medical - PN: Obj Da - Labs CBC & Chem 7: 11/28/18 04:15 11/28/18 04:15 Labs: Abnormal Lab Results 11/28/18 11/28/18 11/27/18 04:15 04:15 04:00 RBC 2.98 L Hgb 10.9 L Hct 31.7 L MCV 106.5 H MCH 36.6 H RDW 17.7 H Plt Count 46 L* Lymph # (Auto) [place] # (Auto) Lymphocytes % Monocytes % (Manual) Platelet Estimate Mk decr A RBC Morphology Abnorm A Anisocytosis 1+ A Macrocytosis 2+ A PT INR Potassium 5.8 H Carbon Dioxide BUN 25 H Creatinine Glucose 126 H Phosphorus 6.1 H* Total Bilirubin 4.9 H 4.5 H Direct Bilirubin 1.6 H 1.6 H GGT 67 H 70 H AST 57 H 65 H ALT 44 H 49 H Alkaline Phosphatase 153 H 174 H Ammonia Total Protein 5.6 L 11/27/18 11/26/18 11/26/18 04:00 22:13 22:08 RBC 3.16 L Hgb 11.5 L Hct 33.8 L MCV 107.2 H MCH 36.5 H RDW 18.5 H Plt Count 69 L Lymph # (Auto) [place] # (Auto) Lymphocytes % 14 L Monocytes % (Manual) 15 H Platelet Estimate Decreased A RBC Morphology Abnorm A Anisocytosis 1+ A Macrocytosis 2+ A PT INR Potassium 6.1 H* Carbon Dioxide 21 L BUN 29 H Creatinine 1.4 H Glucose 114 H Phosphorus Total Bilirubin 4.9 H Direct Bilirubin GGT AST 71 H ALT 53 H Alkaline Phosphatase 197 H Ammonia 129 H Total Protein 11/26/18 11/26/18 22:08 22:08 RBC 3.42 L Hgb 11.9 L Hct 35.5 L MCV 104.0 H MCH 34.9 H RDW 16.6 H Plt Count 90 L Lymph # (Auto) 1.4 L [place] # (Auto) 1.0 H Lymphocytes % Monocytes % (Manual) Platelet Estimate RBC Morphology Anisocytosis Macrocytosis PT 17.9 H INR 1.5 H Potassium Carbon Dioxide BUN Creatinine Glucose Phosphorus Total Bilirubin Direct Bilirubin GGT AST ALT Alkaline Phosphatase Ammonia Total Protein Meds: Medications Hydrocodone Bitart/Acetaminophen ([place] 10/325mg) 1 tab PO BIDP PRN PRN Reason: Pain Last Admin: 11/28/18 15:03 Dose: 1 tab Documented by: Bupropion HCl (Wellbutrin Xl) 150 mg PO Q48H [facility] Last Admin: 11/28/18 13:55 Dose: 150 mg Documented by: Cyanocobalamin (Vitamin B-12) 1,000 mcg PO BID [facility] Stop: 12/01/18 21:01 Last Admin: 11/28/18 08:41 Dose: 1,000 mcg Documented by: Docusate Sodium (Colace) 100 mg PO BID [facility] Last Admin: 11/28/18 08:41 Dose: Not Given Documented by: Fentanyl (Duragesic) 50 mcg TOPICAL Q72H [facility] Last Admin: 11/28/18 13:54 Dose: 50 mcg Documented by: Folic Acid (Folic Acid) 1 mg PO DAILY [facility] Last Admin: 11/28/18 08:41 Dose: 1 mg Documented by: Furosemide (Lasix) 40 mg PO DAILY [facility] Gabapentin (Neurontin) 300 mg PO BID [facility] Guaifenesin/Codeine Phosphate (Robitussin Ac) 10 ml PO Q4HP PRN PRN Reason: Cough Heparin Sodium (Porcine) (Heparin) 5,000 unit SQ Q12 [facility] Last Admin: 11/28/18 08:41 Dose: Not Given Documented by: Thiamine HCl 100 mg/ Sodium (Chloride) 51 mls @ 50 mls/hr IV DAILY [facility] Stop: 11/29/18 10:02 Last Infusion: 11/28/18 13:48 Dose: Infused Documented by: Iron Carb/Multivit/[employer]/Folic Acid (Multivitamin W/Minerals) 1 tab PO DAILY [facility] Last Admin: 11/28/18 08:41 Dose: 1 tab Documented by: Lactulose (Cephulac) 30 gm PO QID [facility] Last Admin: 11/28/18 18:02 Dose: 30 gm Documented by: Lorazepam (Ativan) 1 mg PO TIDP PRN PRN Reason: Anxiety Last Admin: 11/28/18 13:55 Dose: 1 mg Documented by: Omeprazole (Prilosec) 20 mg PO ACB [facility] Ondansetron HCl (Zofran) 4 mg IV Q4-6HP PRN PRN Reason: Nausea And Vomiting Senna/Docusate Sodium (Senna Plus Tablet) 1 tab PO HS [facility] Last Admin: 11/27/18 21:42 Dose: Not Given Documented by: Sodium Chloride (Saline Flush) 10 ml IV Q8 [facility] Last Admin: 11/28/18 13:56 Dose: Not Given Documented by: Medical - PN: A/P - Time Spent With Patient Total time spent is greater than 50% in coordination of care (as documented) at patient's floor/unit and/or counseling patient: 25 - 35 minutes (1) Liver cirrhosis Status: Acute Current Visit: No (2) Hepatic encephalopathy Status: Acute Current Visit: Yes (3) Hyperkalemia Status: Acute Current Visit: No - Narrative A/P Narrative: Hepatic encephalopathy. Continues to improve on lactulose and rifaximin. Likely precipitated by volume depletion and missing regular doses of lactulose. Plan: Continue with current therapy. To receive third bag of crystalloid with supplemental vitamins tomorrow. Hyperkalemia. Patient was on spironolactone, had volume depletion, likely combination of which led to hyperkalemia. Status post Kayexalate and furosemide and crystalloid. 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 No evidence of SBP or GI bleed. Plan: Continue outpatient follow-up with Dr. More. Anxiety disorder, opioid withdrawal. Patient quite anxious and uncomfortable with psychomotor agitation this afternoon. Improved after reintroducing opioids. Also remains on his home bupropion and as needed lorazepam. Plan: Continue Neuropathy. Stable. Plan: Continue gabapentin Chronic pain on fentanyl patch and hydrocodone. Had been held as noted above. Plan: Home medications resumed. GERD. Stable. Plan: Continue PPI Anticipate discharge in 24 to 48 hours. Prophylaxis: Heparin held due to thrombocytopenia. CODE STATUS: Full code Medical - PN: Qual - VTE Deep Vein Thrombosis/Pulmonary Embolism Present on Admission: No
[2018-11-28] MEDS: GABAPENTIN 300 MG CAPSULE PO SCH (20:55)
[2018-11-28] MEDS: SENNOSIDES/DOCUSATE SODIUM 1 TAB TABLET PO SCH (20:59)
[2018-11-29 06:12] LABS: Hematocrit 29.2 % (41.0-55.0); Hemoglobin 10.1 g/dL (13.5-16.5); Mean Cell Volume 106.3 fL (80.0-100.0); Mean Corpuscular HGB Conc 34.5 g/dL (31.0-36.0); Mean Platelet Volume 8.7 fL (7.4-10.4); Platelet Count 45 K/mcL (140-440); RBC 2.74 M/mcL (4.50-5.90); Red Cell Distribution Width 17.3 % (11.5-14.5); WBC 4.7 K/mcL (4.5-11.0)
[2018-11-29 06:29] LABS: ALT/SGPT 45 U/l (0-40); AST/SGOT 59 U/l (0-37); Albumin 3.2 gm/dL (3.2-5.2); Albumin/Globulin Ratio 1.5 (1.0-2.3); Alkaline Phosphatase 130 U/L (39-117); Bilirubin,Direct 1.7 mg/dL (0.0-0.3); Bilirubin,Total 5.9 mg/dL (0.0-1.0); Blood Urea Nitrogen 21 mg/dl (8-23); Calcium 8.6 mg/dl (8.6-10.4); Carbon Dioxide 23 mmol/L (22-30); Chloride 104 mmol/L (96-108); Globulin 2.2 gm/dL (2.2-3.7); Glomerular Filtration Rate 91; Glucose 94 mg/dL (70-105); Lactate Dehydrogenase 191 U/L (94-250); Phosphorous 3.8 mg/dL (2.7-4.5); Triglycerides 60 mg/dl (<150); Uric Acid 5.9 mg/dL (2.5-8.0)
[2018-11-29 08:02] LABS: Anisocytosis 1+ (NONE SEEN); Band Neutrophils % 6 % (0-10); Eosinophils % (Manual) 1 % (0-7); Hypochromasia FEW (NONE SEEN); Lymphocytes % 22 % (15-49); Macrocytosis 2+ (NONE SEEN); Monocytes % (Manual) 11 % (1-12); Platelet Estimate MK DECR (NORMAL); RBC Morphology ABNORM (NORMAL); Reactive Lymphocytes 2 % (0-2); Segmented Neutrophils % 58 % (38-78)
[2018-11-29] MEDS: DOCUSATE SODIUM 100 MG CAPSULE PO SCH ×2 (10:46→21:09)
[2018-11-29] MEDS: OMEPRAZOLE 20 MG CAPSULE PO SCH (10:47)
[2018-11-29] MEDS: 0.9 % SODIUM CHLORIDE 10 ML SYRINGE IV SCH ×3 (10:48→21:10)
[2018-11-29] MEDS: RIFAXIMIN 550 MG TABLET PO SCH ×2 (12:06→21:07)
[2018-11-29] MEDS: MULTIVIT,THER IRON,CA,FA & MIN 1 TABLET PO SCH (12:06)
[2018-11-29] MEDS: GABAPENTIN 300 MG CAPSULE PO SCH ×2 (12:06→21:07)
[2018-11-29] MEDS: FUROSEMIDE 40 MG TABLET PO SCH (12:07)
[2018-11-29] MEDS: LACTULOSE 20 GM/30 ML ORAL.SOL PO SCH ×4 (12:07→21:08)
[2018-11-29] MEDS: CYANOCOBALAMIN (VITAMIN B-12) 500 MCG TABLET PO SCH ×2 (12:07→21:07)
[2018-11-29] MEDS: FOLIC ACID 1 MG TABLET PO SCH (12:07)
[2018-11-29] MEDS: THIAMINE 100 MG in 0.9 % SODIUM CHLORIDE 50 ML IV SCH (12:08)
[2018-11-29] MEDS: SENNOSIDES/DOCUSATE SODIUM 1 TAB TABLET PO SCH (21:09)
[2018-11-29] MEDS: LORazepam 1 MG TABLET PO PRN (21:13)
[2018-11-29] MEDS: HYDROcodone/APAP 10/325MG TABLET PO PRN (21:13)
--- NOTE | 2018-11-29 21:24 | Internal Med Progress Note ---
Medical - PN: Subj Patient information: Note initiated : 11/29/18 at 9:22 pm Service Date, if different from initiated Date: [] Patient: Thien Pacheco a 63 y/o M admitted on 11/27/18 for weakness. Chief Complaint: Follow-up encephalopathy Interval history: Mr. Pacheco is a 63 year old M with a known history of alcoholic cirrhosis and recurrent episodes hepatic encephalopathy on lactulose who presents to the ER in unresponsive state. Patient is accompanied with his . He was in his baseline state of health until the day prior he became very lethargic confused and was unable to take his scheduled dose of lactulose (addendum from 11/29: His reports that the patient did not miss any doses of lactulose prior to his admission to the hospital). He was subsequently brought in near obtunded state. Initial ammonia was over 120. Patient was started on crystalloids her initial work-up revealed elevated creatinine and signs of volume depletion. Was also started on lactulose along with hyperkalemia protocol for potassium of 6.1. Hospitalist service was consulted in light of above At the time of evaluation patient is accompanied with his . He was not able to provide answer the question and occasionally mumbles. No review of system could be performed. He however on initial exam does not have fever, tachycardia or distended abdomen. He does not seem to apparent distress or short of breath. 11/27-patient doing better and more awake on lactulose. Continue crystalloids. Potassium down to 5.8. Case discussed with patient and . Anticipate additional 24 to 48 hours of hospitalization with continued lactulose/rifaximin. Patient follows up with outpatient with Dr. Argenis ENNIS. Denies abdominal pain or recent black tarry stools or hematemesis. Denies alcohol use [id number] medication use. 11/28-patient becoming very anxious, exhibiting symptoms of opioid withdrawal. Fentanyl and hydrocodone have been withheld due to encephalopathy at time of admission. Improved after reordering of fentanyl patch and administration of morphine. Otherwise mentation appears clear, awake, alert, appetite is pretty good. Approaching his baseline. No abdominal pain, no nausea or vomiting. Potassium continues to improve, spironolactone continues to be held. Platelets 46,000 this morning, heparin held, though in a similar range to his historic thrombocytopenia levels. ontinue to slowly improve. Feels much better than he did yesterday after resuming his home chronic pain regimen. Still not feeling quite at baseline. Holding spironolactone due to his hyperkalemia. [place] low but stable at 46,000 this morning. Heparin stopped. - Constitutional Vitals: Vital Signs Temp Pulse Resp BP Pulse Ox 97.6 F 93 H 12 118/75 96 11/29/18 19:41 11/29/18 19:41 11/29/18 19:41 11/29/18 19:41 11/29/18 19:41 Period Temp Pulse Resp BP Sys/[place] Pulse Ox Last 24 Hr 97.6 F-99.0 F 71-95 12-20 111-127/63-76 95-97 Intake and Output 11/29/18 11/29/18 11/29/18 05:59 13:59 21:59 Intake Total 181 44 4011 Balance 391 98 0431 Weight 198 lb 9.6 oz Patient Weight 11/30/18 05:59 Weight 198 lb 9.6 oz Intake & Output: Intake & Output 11/29/18 11/29/18 11/29/18 05:59 13:59 21:59 Intake Total 259 15 3766 Balance 161 03 6051 Weight 198 lb 9.6 oz Intake: IV 51 Oral 540 1800 Other: Meal Lunch Percent of Meal Consumed 100% Feeding Ability Independent Stool Size Moderate Stool Color Brown Stool Consistency Loose # Voids 1 2 # Bowel Movements 1 2 Exam: General: In bed, appears comfortable Chest: Clear Cardia vascular: Regular Abdomen: Soft, nontender Neuro: Alert, oriented, mild generalized weakness, mild unsteadiness of gait. Medical - PN: Obj Da - Labs CBC & Chem 7: 11/29/18 04:21 11/29/18 04:21 Labs: Abnormal Lab Results 11/29/18 11/29/18 11/28/18 04:21 04:21 04:15 RBC 2.74 L Hgb 10.1 L Hct 29.2 L MCV 106.3 H MCH 36.7 H RDW 17.3 H Plt Count 45 L* Lymph # (Auto) [place] # (Auto) Lymphocytes % Monocytes % (Manual) Platelet Estimate Mk decr A RBC Morphology Abnorm A Hypochromasia Few A Anisocytosis 1+ A Macrocytosis 2+ A PT INR Potassium Carbon Dioxide BUN Creatinine Glucose Phosphorus Total Bilirubin 5.9 H 4.9 H Direct Bilirubin 1.7 H 1.6 H GGT 66 H 67 H AST 59 H 57 H ALT 45 H 44 H Alkaline Phosphatase 130 H 153 H Ammonia Total Protein 5.4 L 5.6 L 11/28/18 11/27/18 11/27/18 04:15 04:00 04:00 RBC 2.98 L 3.16 L Hgb 10.9 L 11.5 L Hct 31.7 L 33.8 L MCV 106.5 H 107.2 H MCH 36.6 H 36.5 H RDW 17.7 H 18.5 H Plt Count 46 L* 69 L Lymph # (Auto) [place] # (Auto) Lymphocytes % 14 L Monocytes % (Manual) 15 H Platelet Estimate Mk decr A Decreased A RBC Morphology Abnorm A Abnorm A Hypochromasia Anisocytosis 1+ A 1+ A Macrocytosis 2+ A 2+ A PT INR Potassium 5.8 H Carbon Dioxide BUN 25 H Creatinine Glucose 126 H Phosphorus 6.1 H* Total Bilirubin 4.5 H Direct Bilirubin 1.6 H GGT 70 H AST 65 H ALT 49 H Alkaline Phosphatase 174 H Ammonia Total Protein 11/26/18 11/26/18 11/26/18 22:13 22:08 22:08 RBC Hgb Hct MCV MCH RDW Plt Count Lymph # (Auto) [place] # (Auto) Lymphocytes % Monocytes % (Manual) Platelet Estimate RBC Morphology Hypochromasia Anisocytosis Macrocytosis PT 17.9 H INR 1.5 H Potassium 6.1 H* Carbon Dioxide 21 L BUN 29 H Creatinine 1.4 H Glucose 114 H Phosphorus Total Bilirubin 4.9 H Direct Bilirubin GGT AST 71 H ALT 53 H Alkaline Phosphatase 197 H Ammonia 129 H Total Protein 11/26/18 22:08 RBC 3.42 L Hgb 11.9 L Hct 35.5 L MCV 104.0 H MCH 34.9 H RDW 16.6 H Plt Count 90 L Lymph # (Auto) 1.4 L [place] # (Auto) 1.0 H Lymphocytes % Monocytes % (Manual) Platelet Estimate RBC Morphology Hypochromasia Anisocytosis Macrocytosis PT INR Potassium Carbon Dioxide BUN Creatinine Glucose Phosphorus Total Bilirubin Direct Bilirubin GGT AST ALT Alkaline Phosphatase Ammonia Total Protein Meds: Medications Hydrocodone Bitart/Acetaminophen ([place] 10/325mg) 1 tab PO BIDP PRN PRN Reason: Pain Last Admin: 11/29/18 21:13 Dose: 1 tab Documented by: Bupropion HCl (Wellbutrin Xl) 150 mg PO Q48H [facility] Last Admin: 11/28/18 13:55 Dose: 150 mg Documented by: Cyanocobalamin (Vitamin B-12) 1,000 mcg PO BID [facility] Stop: 12/01/18 21:01 Last Admin: 11/29/18 21:07 Dose: 1,000 mcg Documented by: Docusate Sodium (Colace) 100 mg PO BID [facility] Last Admin: 11/29/18 21:09 Dose: Not Given Documented by: Fentanyl (Duragesic) 50 mcg TOPICAL Q72H [facility] Last Admin: 11/28/18 13:54 Dose: 50 mcg Documented by: Folic Acid (Folic Acid) 1 mg PO DAILY [facility] Last Admin: 11/29/18 12:07 Dose: 1 mg Documented by: Furosemide (Lasix) 40 mg PO DAILY [facility] Last Admin: 11/29/18 12:07 Dose: 40 mg Documented by: Gabapentin (Neurontin) 300 mg PO BID [facility] Last Admin: 11/29/18 21:07 Dose: 300 mg Documented by: Guaifenesin/Codeine Phosphate (Robitussin Ac) 10 ml PO Q4HP PRN PRN Reason: Cough Iron Carb/Multivit/[place]/Folic Acid (Multivitamin W/Minerals) 1 tab PO DAILY [facility] Last Admin: 11/29/18 12:06 Dose: 1 tab Documented by: Lactulose (Cephulac) 30 gm PO QID [facility] Last Admin: 11/29/18 21:08 Dose: 30 gm Documented by: Lorazepam (Ativan) 1 mg PO TIDP PRN PRN Reason: Anxiety Last Admin: 11/29/18 21:13 Dose: 1 mg Documented by: Omeprazole (Prilosec) 20 mg PO ACB [facility] Last Admin: 11/29/18 10:47 Dose: 20 mg Documented by: Ondansetron HCl (Zofran) 4 mg IV Q4-6HP PRN PRN Reason: Nausea And Vomiting Senna/Docusate Sodium (Senna Plus Tablet) 1 tab PO HS [facility] Last Admin: 11/29/18 21:09 Dose: Not Given Documented by: Sodium Chloride (Saline Flush) 10 ml IV Q8 [facility] Last Admin: 11/29/18 21:10 Dose: 10 ml Documented by: Medical - PN: A/P - Time Spent With Patient Total time spent is greater than 50% in coordination of care (as documented) at patient's floor/unit and/or counseling patient: 25 - 35 minutes (1) Liver cirrhosis Status: Acute Current Visit: No (2) Hepatic encephalopathy Status: Acute Current Visit: Yes (3) Hyperkalemia Status: Acute Current Visit: No - Narrative A/P Narrative: Hepatic encephalopathy. Continues to improve on lactulose and rifaximin. Likely precipitated by volume depletion; initially also thought missing regular doses of lactulose contributed, however reports that he had not missed any lactulose prior to his hospitalization.. Plan: Continue with current therapy. As received all 3 bags of crystalloid with supplemental vitamins. Hyperkalemia. Resolved. Patient was on spironolactone, had volume depletion, likely combination of which led to hyperkalemia. Status post Kayexalate and furosemide and crystalloid. 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 No evidence of SBP or GI bleed. Plan: Continue outpatient follow-up with Dr. More. Anxiety disorder, opioid withdrawal. Opioid withdrawal resolved. Patient quite anxious and uncomfortable with psychomotor agitation Thursday afternoon. Also remains on his home bupropion and as needed lorazepam. Plan: Continue opioid therapy and antianxiety therapy. Neuropathy. Stable. Plan: Continue gabapentin Chronic pain on fentanyl patch and hydrocodone. Medications resumed yesterday. Plan: Continue home medications. GERD. Stable. Plan: Continue PPI Anticipate discharge in 24 hours. Prophylaxis: Heparin held due to thrombocytopenia. CODE STATUS: Full code Medical - PN: Qual - VTE Deep Vein Thrombosis/Pulmonary Embolism Present on Admission: No
[2018-11-30 06:05] LABS: ALT/SGPT 46 U/l (0-40); AST/SGOT 62 U/l (0-37); Albumin 3.1 gm/dL (3.2-5.2); Albumin/Globulin Ratio 1.4 (1.0-2.3); Alkaline Phosphatase 130 U/L (39-117); Bilirubin,Direct 1.5 mg/dL (0.0-0.3); Bilirubin,Total 4.6 mg/dL (0.0-1.0); Blood Urea Nitrogen 19 mg/dl (8-23); Calcium 8.4 mg/dl (8.6-10.4); Carbon Dioxide 20 mmol/L (22-30); Chloride 102 mmol/L (96-108); Globulin 2.2 gm/dL (2.2-3.7); Glomerular Filtration Rate 95; Glucose 105 mg/dL (70-105); Lactate Dehydrogenase 219 U/L (94-250); Triglycerides 98 mg/dl (<150); Uric Acid 6.1 mg/dL (2.5-8.0)
[2018-11-30 06:16] LABS: Hematocrit 27.9 % (41.0-55.0); Hemoglobin 9.7 g/dL (13.5-16.5); Mean Cell Volume 106.2 fL (80.0-100.0); Mean Corpuscular HGB Conc 34.8 g/dL (31.0-36.0); Mean Platelet Volume 8.9 fL (7.4-10.4); Platelet Count 45 K/mcL (140-440); RBC 2.63 M/mcL (4.50-5.90); Red Cell Distribution Width 17.1 % (11.5-14.5); WBC 4.7 K/mcL (4.5-11.0)
[2018-11-30 08:21] LABS: Anisocytosis 1+ (NONE SEEN); Eosinophils % (Manual) 3 % (0-7); Hypochromasia FEW (NONE SEEN); Lymphocytes % 13 % (15-49); Macrocytosis 2+ (NONE SEEN); Monocytes % (Manual) 5 % (1-12); Platelet Estimate MK DECR (NORMAL); RBC Morphology ABNORM (NORMAL); Segmented Neutrophils % 79 % (38-78)
[2018-11-30] MEDS: RIFAXIMIN 550 MG TABLET PO SCH (08:45)
[2018-11-30] MEDS: FUROSEMIDE 40 MG TABLET PO SCH (08:45)
[2018-11-30] MEDS: MULTIVIT,THER IRON,CA,FA & MIN 1 TABLET PO SCH (08:45)
[2018-11-30] MEDS: LACTULOSE 20 GM/30 ML ORAL.SOL PO SCH ×2 (08:45→13:15)
[2018-11-30] MEDS: 0.9 % SODIUM CHLORIDE 10 ML SYRINGE IV SCH (08:46)
[2018-11-30] MEDS: CYANOCOBALAMIN (VITAMIN B-12) 500 MCG TABLET PO SCH (08:46)
[2018-11-30] MEDS: OMEPRAZOLE 20 MG CAPSULE PO SCH (08:46)
[2018-11-30] MEDS: GABAPENTIN 300 MG CAPSULE PO SCH (08:46)
[2018-11-30] MEDS: FOLIC ACID 1 MG TABLET PO SCH (08:46)
--- NOTE | 2018-11-30 10:54 | Discharge Summary ---
Medical - DS: Prov Patient information: Note initiated : 11/30/18 at 10:50 am Service Date, if different from initiated Date: [] Patient: Thien Pacheco 63 y/o M admitted on 11/27/18 for weakness. Chief Complaint: [] Date of admission: 11/27/18 01:18 Discharge date: 11/30/18 Primary care physician: Cindy Hester Admitting clinician: Dada Ervin Consults: 11/26/18 Consult to Physician [CONS] Stat Comment: Consulting Provider: Dada Ervin Reason For Exam: Physician to Consult Discharging clinician: Aleida Garcia Medical - DS: Meds - Discharge Medications Prescriptions: Rifaximin [Xifaxan] 550 mg PO BID #60 tab Active and Home Medications: Home Medications Cyclobenzaprine [Flexeril] 10 mg PO TIDP PRN 04/05/18 [History Confirmed 11/27/18 Last Taken 11/17/18 22:00] Gabapentin [Neurontin] 300 mg PO BID 04/05/18 [History Confirmed 11/27/18 Last Taken 11/18/18 11:00] fentaNYL [Fentanyl] 50 mcg TD Q48H 04/05/18 [History Confirmed 11/27/18 Last Taken 11/24/18] Furosemide [Lasix] 40 mg PO DAILY #30 tab 09/23/18 [Rx Confirmed 11/27/18 Last Taken 11/18/18 11:00] buPROPion [Wellbutrin Xl] 150 mg PO Q48H #2 tab.xl.24h 09/23/18 [Rx Confirmed 11/27/18 Last Taken 11/18/18 11:00] HYDROcodone/APAP 10/325MG [[place] 10-325Mg] 1 tab PO BIDP PRN #1 tab 11/20/18 [Rx Confirmed 11/27/18 Last Taken Unknown] Albuterol Sulfate [Ventolin] 2 puff INH QIDP PRN 11/27/18 [History Confirmed 11/27/18 Last Taken Unknown] LORazepam [Ativan] 1 mg PO TIDP PRN 11/27/18 [History Confirmed 11/27/18 Last Taken Unknown] Lactulose [Enulose] 40 gm PO BID 11/27/18 [History Confirmed 11/27/18 Last Taken Unknown] Lisinopril [Zestril] 20 mg PO DAILY 11/27/18 [History Confirmed 11/27/18 Last Taken Unknown] Omeprazole [PriLOSEC] 20 mg PO ACB 11/27/18 [History Confirmed 11/27/18 Last Taken Unknown] Spironolactone [Aldactone] 100 mg PO DAILY 11/27/18 [History Confirmed 11/27/18 Last Taken Unknown] Medical - DS: Hosp Hospital Course: Mr. Pacheco is a 63 year old M with a known history of alcoholic cirrhosis and recurrent episodes hepatic encephalopathy on lactulose who presents to the ER in unresponsive state. Patient is accompanied with his . He was in his baseline state of health until the day prior he became very lethargic confused and was unable to take his scheduled dose of lactulose (addendum from 11/29: His reports that the patient did not miss any doses of lactulose prior to his admission to the hospital). He was subsequently brought in near obtunded state. Initial ammonia was over 120. Patient was started on crystalloids her initial work-up revealed elevated creatinine and signs of volume depletion. Was also started on lactulose along with hyperkalemia protocol for potassium of 6.1. Hospitalist service was consulted in light of above At the time of evaluation patient is accompanied with his . He was not able to provide answer the question and occasionally mumbles. No review of system could be performed. He however on initial exam does not have fever, tachycardia or distended abdomen. He does not seem to apparent distress or short of breath. 11/27-patient doing better and more awake on lactulose. Continue crystalloids. Potassium down to 5.8. Case discussed with patient and . Anticipate additional 24 to 48 hours of hospitalization with continued lactulose/rifaximin. Patient follows up with outpatient with Dr. More GI. Denies abdominal pain or recent black tarry stools or hematemesis. Denies alcohol use [id number] medication use. 11/28-patient becoming very anxious, exhibiting symptoms of opioid withdrawal. Fentanyl and hydrocodone have been withheld due to encephalopathy at time of admission. Improved after reordering of fentanyl patch and administration of morphine. Otherwise mentation appears clear, awake, alert, appetite is pretty good. Approaching his baseline. No abdominal pain, no nausea or vomiting. Potassium continues to improve, spironolactone continues to be held. Platelets 46,000 this morning, heparin held, though in a similar range to his historic thrombocytopenia levels. 2continue to slowly improve. Feels much better than he did yesterday after resuming his home chronic pain regimen. Still not feeling quite at baseline. Holding spironolactone due to his hyperkalemia. Platelets low but stable at 46,000 this morning. Heparin stopped. 3doing well, approaching his baseline. Working with physical therapy. Able to manage stairs. Not requiring assistance for ambulation. Having frequent stools, is on both lactulose and rifaximin. Platelets are low and stable. Patient will be discharged home. Unclear what the etiology of his decompensation was, as his reports he had missed no doses of lactulose prior to admission, but certainly had a decreased in mentation and evidence of hepatic encephalopathy. No evidence of infection, no evidence of GI bleed to explain decompensation. Spironolactone held at time of discharge secondary to hyperkalemia. Patient was started on rifaximin in the hospital in addition to lactulose with clearing of his encephalopathy. A prescription for rifaximin was given at discharge. Discharge diagnosis: Hepatic encephalopathy Secondary discharge diagnosis: Hyperkalemia. Resolved. Patient was on spironolactone, had volume depletion, likely combination of which led to hyperkalemia. 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 No evidence of SBP or GI bleed. Follows with Dr. More Anxiety disorder. On home bupropion and as needed lorazepam. Neuropathy. Stable. Chronic pain on fentanyl patch and hydrocodone. Status post opioid withdrawal when sedating medications held due to encephalopathy. Withdrawal resolved with resumption of medications GERD. Stable. - Time Spent with Patient Total time spent providing and/or coordinating discharge services: Less than 30 minutes Medical - DS: Exam - Constitutional Vitals: Vital Signs Temp Pulse Resp BP Pulse Ox 11/30/18 03:59 98.2 F 76 12 113/66 98 11/29/18 23:53 97.9 F 78 12 110/65 96 11/29/18 19:41 97.6 F 93 H 12 118/75 96 11/29/18 16:00 99.0 F 78 18 111/63 97 11/29/18 12:00 98.3 F 95 H 20 123/67 97 Intake and Output 11/29/18 11/30/18 11/30/18 21:59 05:59 13:59 Intake Total 1800 650 Balance 1800 650 Intake: Oral 1800 650 Other: Meal Lunch Percent of Meal Consumed 100% Feeding Ability Independent Stool Color Brown Stool Consistency Loose Loose # Voids 2 1 # Bowel Movements 2 1 Weight 198 lb 9.6 oz Additional comments: General: Seen at bedside no acute distress Chest: Clear to auscultation Cardiovascular: Regular Abdomen: Soft, nontender, nondistended, active bowel sounds Neuro: Alert, oriented to person, place, situation, no asterixis. Medical - DS: Data Labs on day of discharge: Labs from last 24 hours 11/30/18 11/30/18 04:00 04:00 WBC 4.7 RBC 2.63 L Hgb 9.7 L Hct 27.9 L MCV 106.2 H MCH 36.9 H MCHC 34.8 RDW 17.1 H Plt Count 45 L* MPV 8.9 Total Counted 100 Seg Neutrophils % 79 H Band Neutrophils % Not Reportable Lymphocytes % 13 L Monocytes % (Manual) 5 Eosinophils % (Manual) 3 Platelet Estimate Mk decr A RBC Morphology Abnorm A Hypochromasia Few A Anisocytosis 1+ A Macrocytosis 2+ A Sodium 135 Potassium 3.9 Chloride 102 Carbon Dioxide 20 L Anion Gap 13.0 BUN 19 Creatinine 0.8 GFR Calculation 95 Glucose 105 Uric Acid 6.1 Calcium 8.4 L Phosphorus 4.0 Magnesium 1.7 Total Bilirubin 4.6 H Direct Bilirubin 1.5 H GGT 61 AST 62 H ALT 46 H Alkaline Phosphatase 130 H Lactate Dehydrogenase 219 Total Protein 5.3 L Albumin 3.1 L Globulin 2.2 Albumin/Globulin Ratio 1.4 Triglycerides 98 - Impressions Date of Service: 11/26/18 Procedure(s): XR chest 1V portable HISTORY: Weakness FINDINGS: Lungs are clear. The heart is borderline enlarged but magnified by portable technique. There is no congestive heart failure or pleural effusion. There is improved aeration of both lung bases compared with the prior studies done on 09/22/892218. IMPRESSION: borderline cardiomegaly and no acute abnormality Medical - DS: A/P - Patient/Caregiver Discharge Instructions Activity: increase activity as tolerated Diet: Low Sodium (2gm) - Problem Maintenance (1) Liver cirrhosis Status: Chronic Qualifiers: Hepatic cirrhosis type: alcoholic cirrhosis Ascites presence: without ascites Qualified Code(s): K70.30 - Alcoholic cirrhosis of liver without ascites (2) Hepatic encephalopathy Status: Resolved (3) Hyperkalemia Status: Resolved - Follow up Plan Follow up with: Cindy Hester MD [Primary Care Provider] - (7-10 days) Disposition: Home, Self-Care Prognosis: Fair Rehab Potential: Fair Overall status at discharge: patient is back to baseline Medical - DS: Qual - VTE Deep Vein Thrombosis/Pulmonary Embolism Present on Admission: No
[2018-11-30] MEDS: buPROPion 150 MG TAB.XL.24H PO SCH (13:15)
[2018-11-30] MEDS: DOCUSATE SODIUM 100 MG CAPSULE PO SCH (13:16)
== END 2018-11-30 16:44 | disposition home or self-care (01) | DRG 432 ==
LOC: ED 21:31 → ICU 11-27 01:18 → MEDSUR 11-28 08:11
PROVIDERS: ADMIT Internal Medicine; ATTEND Internal Medicine